=== PATIENT | male | born 1950 | race Two or more races ===

== ENCOUNTER 2022-02-10 12:50 | Emergency (ER) | payer OTHER ==
[~2022-02-10] VITALS: Ht 162.6 cm; Wt 77.1 kg
[2022-02-10 14:03] VITALS: BP 143/76
[2022-02-10] MEDS ORDERED: HYDR-4072 PO (14:37)
[2022-02-10] MEDS ORDERED: HYDROcodone-ACET 10/325MG TAB PO ONE (14:45)
== END 2022-02-10 15:07 | disposition home or self-care (01) ==
LOC: ER 12:50
DX: G89.29 Other chronic pain (principal); M54.50 Low back pain, unspecified; M54.2 Cervicalgia; E78.5 Hyperlipidemia, unspecified; I10 Essential (primary) hypertension; Z76.0 Encounter for issue of repeat prescription

== ENCOUNTER 2022-07-18 10:00 | Inpatient (IN) | payer OTHER, MEDICAID ==
[~2022-07-18] VITALS: Ht 165.1 cm; Wt 94.1 kg
[~2022-07-18 10:00] MED LIST: HYDR-4072 PO
[2022-07-18 11:03] LABS: Eosinophils # (auto) 0 10 ^3/uL (0-0.8); Hemoglobin 9.5 g/dL (13.5-17.5); Lymphocytes # (auto) 0.9 10 ^3/uL (0.4-5.4); Red Cell Distribution Width 13.6 % (11.8-14.3)
[2022-07-18 11:06] LABS: Basophils # (auto) 0.1 10 ^3/uL (0-0.2); Basophils % (auto) 0.6 % (0.0-2.0); Eosinophils % (auto) 0.3 % (0.0-7.0); Hematocrit 27.7 % (41.0-53.0); Lymphocytes % (auto) 9.1 % (10.0-50.0); Mean Corpuscular Hemoglobin 37.2 pg (28.0-32.0); Mean Corpuscular Hgb Conc. 34.4 g/dL (32.0-36.0); Mean Corpuscular Volume 108.4 fL (80.0-100.0); Monocytes # (auto) 0.8 10 ^3/uL (0-1.3); Monocytes % (auto) 8.1 % (0.0-12.0); Neutrophils # (auto) 8.3 10 ^3/uL (1.6-8.6); Neutrophils % (auto) 81.9 % (37.0-80.0); Red Blood Cells 2.55 10^6/uL (4.5-5.90); White Blood Cell 10.2 10^3/uL (4.4-10.8)
[2022-07-18 11:15] LABS: Albumin 3.7 g/dL (3.4-5.0); Calcium 8.1 mg/dL (8.5-10.1); Potassium 4.8 mmol/L (3.5-5.1)
[2022-07-18 11:17] LABS: BUN/Creatinine Ratio 21.8
[2022-07-18 11:19] LABS: Bilirubin, Total 0.7 mg/dL (0.2-1.0); Total Protein 6.7 g/dL (6.4-8.2)
[2022-07-18 13:10] LABS: Urine WBC None Seen /hpf (0 - 3)
[2022-07-18 14:04] LABS: Urine Bacteria NONE SEEN /hpf (None Seen); Urine Blood 1+ /uL (Negative); Urine Specific Gravity 1.007 (1.001-1.035)
[2022-07-18] MEDS ORDERED: FUROSEMIDE 20 MG/2 ML VIAL IV ONE ×2 (15:15→15:45)
[2022-07-18] MEDS ORDERED: ONDANSETRON HCL 4 MG/2 ML VIAL IV PRN (15:15)
[2022-07-18] MEDS ORDERED: NITROGLYCERIN 0.4 MG SL TAB SL PRN (15:15)
[2022-07-18] MEDS ORDERED: MORPHINE SULFATE INJ 2 MG/ml SYRG IV PRN ×2 (15:15)
[2022-07-18] MEDS ORDERED: PANTOPRAZOLE 40 MG/10 ML VIAL INJ IV ONE (15:15)
[2022-07-18] MEDS: HYDROcodone-ACET 5/325MG TAB PO PRN ×2 (15:49→21:32)
[2022-07-18 16:49] VITALS: BP 129/68
[2022-07-18 18:07] VITALS: BP 129/68
[2022-07-18 18:18] VITALS: BP 129/68
[2022-07-18] MEDS ORDERED: SIMV-8 PO (19:24)
[2022-07-18] MEDS ORDERED: FLUO-126 PO (19:24)
[2022-07-18] MEDS ORDERED: LISI20TA28 PO (19:24)
[2022-07-18] MEDS ORDERED: HYDR-4798 PO (19:24)
[2022-07-18] MEDS ORDERED: FLUO-125 PO (19:24)
[2022-07-18] MEDS ORDERED: GABA-339 PO (19:24)
[2022-07-18 21:06] LABS: Protein, Urine 6.7 mg/dL (0.0-11.9)
[2022-07-18 22:00] VITALS: BP 103/61
[2022-07-19] VITALS (7 sets, daily range): BP systolic 85–104; BP diastolic 41–63
[2022-07-19] MEDS: HYDROcodone-ACET 5/325MG TAB PO PRN ×4 (04:58→23:27)
[2022-07-19] MEDS ORDERED: FUROSEMIDE 20 MG/2 ML VIAL IV SCH (06:00)
[2022-07-19 06:29] LABS: BUN/Creatinine Ratio 22.3; Calcium 8.7 mg/dL (8.5-10.1); Potassium 5.3 mmol/L (3.5-5.1)
[2022-07-19] MEDS: PANTOPRAZOLE 40 MG/10 ML VIAL INJ IV SCH (09:25)
[2022-07-19] MEDS ORDERED: DOCUSATE SOD 100 MG CAP PO ONE (09:45)
[2022-07-19] MEDS ORDERED: LACTULOSE 20Gm/30ML SOLN PO SCH (10:00)
[2022-07-19] MEDS ORDERED: FLUoxetine HCL 20 MG CAP PO ONE (10:15)
[2022-07-19] MEDS ORDERED: FUROSEMIDE 20 MG/2 ML VIAL IV ONE (10:15)
[2022-07-19] MEDS: ERGOCALCIFEROL 50,000 UNIT(1.25MG) CAP PO SCH (11:34)
[2022-07-19] MEDS ORDERED: DEXTROSE (50%) 50ML SYRG IV ONE (12:15)
[2022-07-19] MEDS ORDERED: InsuLIN REG 1unit/0.01ml Soln (100units/ml) IV ONE (12:15)
[2022-07-19] MEDS ORDERED: ALBUTEROL SULF 2.5 MG/0.5ML(0.5%) NEB SOLN NEB ONE (12:15)
[2022-07-19] MEDS ORDERED: CALCIUM GLUC 1,000mg/50ml-NS 50 ML IV ONE (12:15)
[2022-07-19] MEDS ORDERED: DOPamine 1600MCG/ML D5W 250 ML IV SCH (12:30)
[2022-07-19] MEDS: ALBUMIN 25% 50 ML IV SCH ×2 (13:47→22:05)
[2022-07-19] MEDS: SODIUM ZIRCONIUM CYCL 10 GM PAK PO SCH ×2 (14:21→22:05)
[2022-07-19] MEDS ORDERED: CYANOCOBALAMIN (B-12) 1000 MCG/1 ML VIAL IM ONE (14:30)
[2022-07-19] MEDS ORDERED: FOLIC ACID 1 MG in D5W 5% 50 ML INJ ONE (14:30)
[2022-07-19] MEDS ORDERED: LORazepam 0.5 MG TAB PO ONE (14:45)
[2022-07-19] MEDS: TAMSULOSIN HYDROCHLORIDE 0.4 MG CAP PO SCH (17:38)
[2022-07-19] MEDS: FUROSEMIDE 40 MG/4 ML VIAL IV SCH (17:40)
[2022-07-20] MEDS: ALBUMIN 25% 50 ML IV SCH (04:26)
[2022-07-20 05:00] VITALS: BP 87/46
[2022-07-20 05:21] LABS: Eosinophils # (auto) 0.1 10 ^3/uL (0-0.8); Eosinophils % (auto) 0.9 % (0.0-7.0); Hemoglobin 8.8 g/dL (13.5-17.5); Lymphocytes # (auto) 1.3 10 ^3/uL (0.4-5.4); Mean Corpuscular Hemoglobin 37.6 pg (28.0-32.0); Neutrophils # (auto) 4.8 10 ^3/uL (1.6-8.6); Nucleated Red Blood Cells % 0.1 %
[2022-07-20 05:24] LABS: Basophils # (auto) 0 10 ^3/uL (0-0.2); Basophils % (auto) 0.7 % (0.0-2.0); Hematocrit 25.8 % (41.0-53.0); Lymphocytes % (auto) 18.5 % (10.0-50.0); Mean Corpuscular Hgb Conc. 34.1 g/dL (32.0-36.0); Mean Corpuscular Volume 110.1 fL (80.0-100.0); Monocytes # (auto) 0.7 10 ^3/uL (0-1.3); Monocytes % (auto) 10.6 % (0.0-12.0); Neutrophils % (auto) 69.3 % (37.0-80.0); Red Blood Cells 2.34 10^6/uL (4.5-5.90); White Blood Cell 6.9 10^3/uL (4.4-10.8)
[2022-07-20] MEDS: FUROSEMIDE 40 MG/4 ML VIAL IV SCH (05:35)
[2022-07-20] MEDS: SODIUM ZIRCONIUM CYCL 10 GM PAK PO SCH (05:36)
[2022-07-20] MEDS: HYDROcodone-ACET 5/325MG TAB PO PRN ×3 (05:37→18:18)
[2022-07-20 05:41] LABS: BUN/Creatinine Ratio 21.8; Calcium 8.5 mg/dL (8.5-10.1); Potassium 4.2 mmol/L (3.5-5.1)
[2022-07-20 09:00] VITALS: BP 108/52
[2022-07-20] MEDS ORDERED: FUROSEMIDE 40 MG/4 ML VIAL IV SCH (10:00)
[2022-07-20] MEDS: PANTOPRAZOLE 40 MG/10 ML VIAL INJ IV SCH (10:18)
[2022-07-20] MEDS: FLUoxetine HCL 20 MG CAP PO SCH (10:18)
[2022-07-20] MEDS: FOLIC ACID 1 MG in D5W 5% 50 ML INJ SCH (10:34)
[2022-07-20] MEDS: CYANOCOBALAMIN (B-12) 1000 MCG/1 ML VIAL IM SCH (10:35)
[2022-07-20] MEDS: POLYETHYLENE GLYCOL 17 GM PWDR PO SCH (11:54)
[2022-07-20 13:00] VITALS: BP 99/42
[2022-07-20] MEDS ORDERED: SODIUM CHLORIDE 0.9% 1,000 ML IV ONE (13:15)
[2022-07-20] MEDS: MIDODRINE HCL 10 MG TAB PO SCH (13:55)
[2022-07-20 17:00] VITALS: BP 107/60
[2022-07-20] MEDS: TAMSULOSIN HYDROCHLORIDE 0.4 MG CAP PO SCH (17:33)
[2022-07-20 22:00] VITALS: BP 94/47
[2022-07-21] MEDS: HYDROcodone-ACET 5/325MG TAB PO PRN ×4 (00:39→18:40)
[2022-07-21 05:00] VITALS: BP 103/55
[2022-07-21 07:54] LABS: BUN/Creatinine Ratio 20.3; Calcium 8.8 mg/dL (8.5-10.1); Potassium 4.2 mmol/L (3.5-5.1)
[2022-07-21 09:00] VITALS: BP 96/57
[2022-07-21] MEDS: CYANOCOBALAMIN (B-12) 1000 MCG/1 ML VIAL IM SCH (10:30)
[2022-07-21] MEDS: MIDODRINE HCL 10 MG TAB PO SCH (11:00)
[2022-07-21] MEDS: FLUoxetine HCL 20 MG CAP PO SCH (11:00)
[2022-07-21] MEDS: POLYETHYLENE GLYCOL 17 GM PWDR PO SCH (11:01)
[2022-07-21] MEDS: FOLIC ACID 1 MG in D5W 5% 50 ML INJ SCH (12:44)
[2022-07-21 13:00] VITALS: BP 104/60
[2022-07-21] MEDS ORDERED: SODIUM CHLORIDE 0.9% 500 ML IV ONE (14:45)
[2022-07-21 14:55] LABS: Hepatitis A Ab IgM Negative; Hepatitis B Core IgM Negative
[2022-07-21 14:56] LABS: Hepatitis C Antibody Negative (Negative)
[2022-07-21 17:00] VITALS: BP 118/73
[2022-07-21] MEDS: TAMSULOSIN HYDROCHLORIDE 0.4 MG CAP PO SCH (18:13)
[2022-07-21 22:00] VITALS: BP 97/48
[2022-07-22 05:00] VITALS: BP 103/55
[2022-07-22 06:06] LABS: RPR Non Reactive (Non Reactive)
[2022-07-22 06:22] LABS: BUN/Creatinine Ratio 19.7; Basophils # (auto) 0.1 10 ^3/uL (0-0.2); Calcium 8.7 mg/dL (8.5-10.1); Eosinophils # (auto) 0.1 10 ^3/uL (0-0.8); Hemoglobin 8.6 g/dL (13.5-17.5); Lymphocytes # (auto) 1.4 10 ^3/uL (0.4-5.4); Monocytes # (auto) 0.6 10 ^3/uL (0-1.3); Neutrophils # (auto) 3.9 10 ^3/uL (1.6-8.6); Potassium 4.1 mmol/L (3.5-5.1)
[2022-07-22 06:27] LABS: Basophils % (auto) 1.1 % (0.0-2.0); Eosinophils % (auto) 1.7 % (0.0-7.0); Hematocrit 24.9 % (41.0-53.0); Lymphocytes % (auto) 22.5 % (10.0-50.0); Mean Corpuscular Hemoglobin 37.5 pg (28.0-32.0); Mean Corpuscular Hgb Conc. 34.6 g/dL (32.0-36.0); Mean Corpuscular Volume 108.2 fL (80.0-100.0); Monocytes % (auto) 9.6 % (0.0-12.0); Neutrophils % (auto) 65.1 % (37.0-80.0); Red Cell Distribution Width 13.4 % (11.8-14.3)
[2022-07-22 07:06] LABS: Immunoglobulin G, Serum 657 mg/dL (603-1613)
[2022-07-22] MEDS: HYDROcodone-ACET 5/325MG TAB PO PRN ×3 (07:57→20:44)
[2022-07-22 09:00] VITALS: BP 111/65
[2022-07-22] MEDS: SODIUM CHLORIDE 0.9% 1,000 ML IV SCH ×3 (10:27→19:47)
[2022-07-22] MEDS: CYANOCOBALAMIN (B-12) 1000 MCG/1 ML VIAL IM SCH (10:28)
[2022-07-22] MEDS: POLYETHYLENE GLYCOL 17 GM PWDR PO SCH (10:29)
[2022-07-22] MEDS: FLUoxetine HCL 20 MG CAP PO SCH (10:29)
[2022-07-22] MEDS: FOLIC ACID 1 MG in D5W 5% 50 ML INJ SCH (10:29)
[2022-07-22] MEDS: PANTOPRAZOLE 40 MG TAB PO SCH (10:29)
[2022-07-22] MEDS: MIDODRINE HCL 10 MG TAB PO SCH ×2 (12:00→17:43)
[2022-07-22 13:00] VITALS: BP 110/67
[2022-07-22 16:54] VITALS: BP 113/62
[2022-07-22 16:57] LABS: INR 1.03 (0.9-1.15); Partial Thromboplastin Time 25.9 sec (24.6-33.4)
[2022-07-22] MEDS: Nepro With Carbsteady ButterPecan 8oz Carton PO SCH (17:43)
[2022-07-22] MEDS: TAMSULOSIN HYDROCHLORIDE 0.4 MG CAP PO SCH (17:43)
[2022-07-22] MEDS ORDERED: ERGOCALCIFEROL 50,000 UNIT(1.25MG) CAP PO SCH (17:45)
[2022-07-22] MEDS ORDERED: Ensure HIGH Protein Chocolate 8oz Bottle PO SCH (18:00)
[2022-07-22 23:42] VITALS: BP 103/47
[2022-07-23] MEDS: HYDROcodone-ACET 5/325MG TAB PO PRN ×4 (02:23→21:01)
[2022-07-23 05:10] LABS: Basophils # (auto) 0.1 10 ^3/uL (0-0.2); Eosinophils # (auto) 0.1 10 ^3/uL (0-0.8); Eosinophils % (auto) 1.6 % (0.0-7.0); Mean Corpuscular Volume 108.6 fL (80.0-100.0); Neutrophils # (auto) 3.8 10 ^3/uL (1.6-8.6)
[2022-07-23 05:14] LABS: Basophils % (auto) 1.2 % (0.0-2.0); Hematocrit 22.5 % (41.0-53.0); Hemoglobin 7.7 g/dL (13.5-17.5); Lymphocytes # (auto) 1.3 10 ^3/uL (0.4-5.4); Lymphocytes % (auto) 21.6 % (10.0-50.0); Mean Corpuscular Hemoglobin 37.5 pg (28.0-32.0); Mean Corpuscular Hgb Conc. 34.5 g/dL (32.0-36.0); Monocytes # (auto) 0.7 10 ^3/uL (0-1.3); Monocytes % (auto) 11.6 % (0.0-12.0); Nucleated Red Blood Cells % 0.3 %; Red Blood Cells 2.07 10^6/uL (4.5-5.90); Red Cell Distribution Width 13.8 % (11.8-14.3)
[2022-07-23] MEDS: MIDODRINE HCL 10 MG TAB PO SCH ×3 (05:34→17:21)
[2022-07-23 05:35] LABS: Potassium 4.4 mmol/L (3.5-5.1)
[2022-07-23 05:42] LABS: Albumin 3.5 g/dL (3.4-5.0); BUN/Creatinine Ratio 19.3; Bilirubin, Total 0.4 mg/dL (0.2-1.0); Calcium 8.2 mg/dL (8.5-10.1); Magnesium 1.9 mg/dL (1.6-2.6); Phosphorus 3.2 mg/dL (2.5-4.90); Total Protein 5.9 g/dL (6.4-8.2)
[2022-07-23 05:49] VITALS: BP 109/60
[2022-07-23 09:08] VITALS: BP 119/53
[2022-07-23] MEDS: CYANOCOBALAMIN (B-12) 1000 MCG/1 ML VIAL IM SCH (09:56)
[2022-07-23] MEDS: FOLIC ACID 1 MG in D5W 5% 50 ML INJ SCH (09:57)
[2022-07-23] MEDS: PANTOPRAZOLE 40 MG TAB PO SCH (09:57)
[2022-07-23] MEDS: POLYETHYLENE GLYCOL 17 GM PWDR PO SCH (09:57)
[2022-07-23] MEDS: FLUoxetine HCL 20 MG CAP PO SCH (10:12)
[2022-07-23] MEDS: Nepro With Carbsteady ButterPecan 8oz Carton PO SCH ×3 (10:14→17:12)
[2022-07-23 12:30] VITALS: BP 105/56
[2022-07-23] MEDS ORDERED: FURO1TAB31 PO (14:04)
[2022-07-23] MEDS ORDERED: TAM04C PO (14:04)
[2022-07-23 16:34] VITALS: BP 122/67
[2022-07-23 17:21] VITALS: BP 119/78
[2022-07-23] MEDS: TAMSULOSIN HYDROCHLORIDE 0.4 MG CAP PO SCH (17:21)
[2022-07-23 22:00] VITALS: BP 113/53
[2022-07-24] MEDS: HYDROcodone-ACET 5/325MG TAB PO PRN ×4 (02:59→21:09)
[2022-07-24 05:00] VITALS: BP 82/43
[2022-07-24 06:03] VITALS: BP 93/47
[2022-07-24] MEDS: MIDODRINE HCL 10 MG TAB PO SCH ×3 (06:08→18:44)
[2022-07-24] MEDS: Nepro With Carbsteady ButterPecan 8oz Carton PO SCH ×3 (08:16→18:19)
[2022-07-24 09:00] VITALS: BP_SYST 139; BP_SYST 98; BP_DIAS 56; BP_DIAS 87
[2022-07-24] MEDS: CYANOCOBALAMIN (B-12) 1000 MCG/1 ML VIAL IM SCH (10:06)
[2022-07-24] MEDS: FOLIC ACID 1 MG in D5W 5% 50 ML INJ SCH (10:06)
[2022-07-24] MEDS: PANTOPRAZOLE 40 MG TAB PO SCH (10:07)
[2022-07-24] MEDS: FLUoxetine HCL 20 MG CAP PO SCH (10:07)
[2022-07-24] MEDS: POLYETHYLENE GLYCOL 17 GM PWDR PO SCH (10:07)
[2022-07-24] MEDS ORDERED: FUROSEMIDE 100 MG/10ML VIAL IV ONE (12:30)
[2022-07-24 13:00] VITALS: BP 98/44
[2022-07-24 13:46] LABS: Calcium 8.8 mg/dL (8.5-10.1); Potassium 4.3 mmol/L (3.5-5.1)
[2022-07-24 13:48] LABS: BUN/Creatinine Ratio 17.9
[2022-07-24] MEDS: GABAPENTIN 300 MG CAP PO SCH ×2 (15:54→21:08)
[2022-07-24 16:39] VITALS: BP 94/51
[2022-07-24] MEDS: TAMSULOSIN HYDROCHLORIDE 0.4 MG CAP PO SCH (18:44)
[2022-07-24 22:00] VITALS: BP 93/46
[2022-07-24] MEDS ORDERED: SODIUM CHLORIDE 0.9% 500 ML IV ONE (22:00)
[2022-07-25] MEDS ORDERED: SODIUM CHLORIDE 0.9% 500 ML IV ONE (00:30)
[2022-07-25] MEDS: traMADol HCL 50 MG TAB PO PRN (03:10)
[2022-07-25 05:00] VITALS: BP 102/51
[2022-07-25] MEDS: HYDROcodone-ACET 5/325MG TAB PO PRN ×4 (05:04→20:47)
[2022-07-25 05:29] LABS: Basophils # (auto) 0 10 ^3/uL (0-0.2); Eosinophils # (auto) 0 10 ^3/uL (0-0.8); Hemoglobin 8.1 g/dL (13.5-17.5); Monocytes # (auto) 0.7 10 ^3/uL (0-1.3); Neutrophils # (auto) 10.9 10 ^3/uL (1.6-8.6); Red Blood Cells 2.16 10^6/uL (4.5-5.90)
[2022-07-25 05:31] LABS: Basophils % (auto) 0.2 % (0.0-2.0); Lymphocytes # (auto) 0.4 10 ^3/uL (0.4-5.4); Lymphocytes % (auto) 3.6 % (10.0-50.0); Mean Corpuscular Hemoglobin 37.5 pg (28.0-32.0); Mean Corpuscular Hgb Conc. 33.8 g/dL (32.0-36.0); Mean Corpuscular Volume 111.2 fL (80.0-100.0); Monocytes % (auto) 5.6 % (0.0-12.0); Neutrophils % (auto) 90.6 % (37.0-80.0)
[2022-07-25 05:37] LABS: Potassium 4.1 mmol/L (3.5-5.1)
[2022-07-25 05:43] LABS: Albumin 3.1 g/dL (3.4-5.0); BUN/Creatinine Ratio 17.1; Bilirubin, Total 0.6 mg/dL (0.2-1.0); Magnesium 1.6 mg/dL (1.6-2.6); Total Protein 5.8 g/dL (6.4-8.2)
[2022-07-25 05:44] LABS: Urine Bacteria NONE SEEN /hpf (None Seen); Urine Blood 2+ /uL (Negative); Urine Specific Gravity 1.012 (1.001-1.035); Urine WBC 132 /hpf (0 - 3); Urine WBC Clumps PRESENT /hpf (None Seen)
[2022-07-25] MEDS: MIDODRINE HCL 10 MG TAB PO SCH ×3 (06:22→17:52)
[2022-07-25] MEDS: GABAPENTIN 300 MG CAP PO SCH ×3 (06:22→21:14)
[2022-07-25] MEDS: Nepro With Carbsteady ButterPecan 8oz Carton PO SCH ×3 (08:25→17:41)
[2022-07-25 08:30] VITALS: BP 125/55
[2022-07-25] MEDS: CYANOCOBALAMIN (B-12) 1000 MCG/1 ML VIAL IM SCH (09:32)
[2022-07-25] MEDS: PANTOPRAZOLE 40 MG TAB PO SCH (09:32)
[2022-07-25] MEDS: FOLIC ACID 1 MG in D5W 5% 50 ML INJ SCH (09:32)
[2022-07-25] MEDS: POLYETHYLENE GLYCOL 17 GM PWDR PO SCH (09:32)
[2022-07-25] MEDS: FLUoxetine HCL 20 MG CAP PO SCH (09:32)
[2022-07-25] MEDS ORDERED: FINASTERIDE 5 MG TAB PO ONE (10:00)
[2022-07-25] MEDS ORDERED: cefTRIAXone 1GM/50ML D5W 50 ML IV ONE (10:00)
[2022-07-25] MEDS: CYANOCOBALAMIN 500 MCG TAB PO SCH (10:36)
[2022-07-25] MEDS: FOLIC ACID 1 MG TAB PO SCH (10:36)
[2022-07-25] MEDS: SODIUM CHLORIDE 0.9% 1,000 ML IV SCH ×2 (10:36→20:44)
[2022-07-25 12:30] VITALS: BP 102/57
[2022-07-25 16:30] VITALS: BP 102/61
[2022-07-25] MEDS: TAMSULOSIN HYDROCHLORIDE 0.4 MG CAP PO SCH (17:52)
[2022-07-25 22:00] VITALS: BP 118/60
[2022-07-26] MEDS: HYDROcodone-ACET 5/325MG TAB PO PRN ×2 (04:45→12:44)
[2022-07-26 05:00] VITALS: BP 106/59
[2022-07-26] MEDS: MIDODRINE HCL 10 MG TAB PO SCH ×3 (05:13→18:34)
[2022-07-26] MEDS: GABAPENTIN 300 MG CAP PO SCH ×3 (05:13→21:25)
[2022-07-26 06:17] LABS: Basophils # (auto) 0 10 ^3/uL (0-0.2); Basophils % (auto) 0.1 % (0.0-2.0); Eosinophils # (auto) 0 10 ^3/uL (0-0.8); Lymphocytes # (auto) 0.5 10 ^3/uL (0.4-5.4); Monocytes # (auto) 0.7 10 ^3/uL (0-1.3); Neutrophils # (auto) 13.1 10 ^3/uL (1.6-8.6); Red Cell Distribution Width 13.7 % (11.8-14.3); White Blood Cell 14.3 10^3/uL (4.4-10.8)
[2022-07-26 06:20] LABS: Eosinophils % (auto) 0.1 % (0.0-7.0); Lymphocytes % (auto) 3.5 % (10.0-50.0); Mean Corpuscular Hemoglobin 37.4 pg (28.0-32.0); Mean Corpuscular Hgb Conc. 34.7 g/dL (32.0-36.0); Mean Corpuscular Volume 107.9 fL (80.0-100.0); Monocytes % (auto) 4.8 % (0.0-12.0); Neutrophils % (auto) 91.5 % (37.0-80.0); Red Blood Cells 2.13 10^6/uL (4.5-5.90)
[2022-07-26 06:32] LABS: BUN/Creatinine Ratio 20.1; Calcium 8.1 mg/dL (8.5-10.1); Potassium 3.7 mmol/L (3.5-5.1)
[2022-07-26] MEDS: Nepro With Carbsteady ButterPecan 8oz Carton PO SCH ×3 (08:00→18:00)
[2022-07-26] MEDS: cefTRIAXone 1GM/50ML D5W 50 ML IV SCH (08:17)
[2022-07-26 09:00] VITALS: BP 103/43
[2022-07-26] MEDS: FOLIC ACID 1 MG TAB PO SCH (09:44)
[2022-07-26] MEDS: POLYETHYLENE GLYCOL 17 GM PWDR PO SCH (09:45)
[2022-07-26] MEDS: CYANOCOBALAMIN 500 MCG TAB PO SCH (09:45)
[2022-07-26] MEDS: ERGOCALCIFEROL 50,000 UNIT(1.25MG) CAP PO SCH (09:45)
[2022-07-26] MEDS: PANTOPRAZOLE 40 MG TAB PO SCH (09:45)
[2022-07-26] MEDS: FLUoxetine HCL 20 MG CAP PO SCH (09:45)
[2022-07-26 13:00] VITALS: BP 105/48
[2022-07-26 17:20] VITALS: BP 95/50
[2022-07-26] MEDS: TAMSULOSIN HYDROCHLORIDE 0.4 MG CAP PO SCH (18:34)
[2022-07-26] MEDS: SODIUM CHLORIDE 0.9% 1,000 ML IV SCH (20:49)
[2022-07-26 22:00] VITALS: BP 103/56
[2022-07-27] MEDS: HYDROcodone-ACET 5/325MG TAB PO PRN ×4 (00:22→20:33)
[2022-07-27 05:00] VITALS: BP 97/55
[2022-07-27 05:22] LABS: Basophils # (auto) 0 10 ^3/uL (0-0.2); Basophils % (auto) 0.4 % (0.0-2.0); Eosinophils # (auto) 0 10 ^3/uL (0-0.8); Eosinophils % (auto) 0.2 % (0.0-7.0); Hematocrit 23.1 % (41.0-53.0); Lymphocytes # (auto) 0.5 10 ^3/uL (0.4-5.4); Mean Corpuscular Hemoglobin 38.5 pg (28.0-32.0); Mean Corpuscular Hgb Conc. 34.7 g/dL (32.0-36.0); Monocytes # (auto) 0.4 10 ^3/uL (0-1.3); Monocytes % (auto) 4.2 % (0.0-12.0); Neutrophils # (auto) 8.2 10 ^3/uL (1.6-8.6); Neutrophils % (auto) 90.2 % (37.0-80.0); Red Blood Cells 2.08 10^6/uL (4.5-5.90); Red Cell Distribution Width 13.9 % (11.8-14.3); White Blood Cell 9.1 10^3/uL (4.4-10.8)
[2022-07-27] MEDS: MIDODRINE HCL 10 MG TAB PO SCH ×3 (05:31→18:02)
[2022-07-27] MEDS: GABAPENTIN 300 MG CAP PO SCH ×3 (05:31→21:45)
[2022-07-27] MEDS: traMADol HCL 50 MG TAB PO PRN (05:32)
[2022-07-27 05:38] LABS: BUN/Creatinine Ratio 21.7; Calcium 8.1 mg/dL (8.5-10.1); Potassium 3.8 mmol/L (3.5-5.1)
[2022-07-27] MEDS: Nepro With Carbsteady ButterPecan 8oz Carton PO SCH ×3 (07:59→18:03)
[2022-07-27 09:00] VITALS: BP 107/61
[2022-07-27] MEDS: cefTRIAXone 1GM/50ML D5W 50 ML IV SCH (09:07)
[2022-07-27] MEDS: CYANOCOBALAMIN 500 MCG TAB PO SCH (09:08)
[2022-07-27] MEDS: PANTOPRAZOLE 40 MG TAB PO SCH (09:08)
[2022-07-27] MEDS: POLYETHYLENE GLYCOL 17 GM PWDR PO SCH (09:08)
[2022-07-27] MEDS: FOLIC ACID 1 MG TAB PO SCH (09:08)
[2022-07-27] MEDS: FLUoxetine HCL 20 MG CAP PO SCH (09:08)
[2022-07-27 10:56] LABS: Folate (Folic Acid) 8.54 ng/mL (5.38-24)
[2022-07-27] MEDS: SODIUM CHLORIDE 0.9% 1,000 ML IV SCH (12:25)
[2022-07-27 13:00] VITALS: BP 98/46
[2022-07-27 17:01] VITALS: BP 93/54
[2022-07-27] MEDS: TAMSULOSIN HYDROCHLORIDE 0.4 MG CAP PO SCH (18:02)
[2022-07-27 20:00] VITALS: BP 108/57
[2022-07-27 22:00] VITALS: BP 108/57
[2022-07-28] VITALS (7 sets, daily range): BP systolic 86–101; BP diastolic 50–58
[2022-07-28] MEDS: HYDROcodone-ACET 5/325MG TAB PO PRN ×4 (02:47→21:46)
[2022-07-28] MEDS: SODIUM CHLORIDE 0.9% 1,000 ML IV SCH ×2 (04:40→22:52)
[2022-07-28 05:28] LABS: BUN/Creatinine Ratio 22.1; Calcium 8.1 mg/dL (8.5-10.1); Phosphorus 3.3 mg/dL (2.5-4.90); Potassium 3.7 mmol/L (3.5-5.1)
[2022-07-28] MEDS: MIDODRINE HCL 10 MG TAB PO SCH ×3 (06:39→18:04)
[2022-07-28] MEDS: Nepro With Carbsteady ButterPecan 8oz Carton PO SCH ×3 (08:00→18:04)
[2022-07-28] MEDS: levoFLOXacin 250 MG TAB PO SCH (10:00)
[2022-07-28] MEDS: CYANOCOBALAMIN 500 MCG TAB PO SCH (10:00)
[2022-07-28] MEDS: FLUoxetine HCL 20 MG CAP PO SCH (10:00)
[2022-07-28] MEDS: PANTOPRAZOLE 40 MG TAB PO SCH (10:00)
[2022-07-28] MEDS: POLYETHYLENE GLYCOL 17 GM PWDR PO SCH (10:00)
[2022-07-28] MEDS: FOLIC ACID 1 MG TAB PO SCH (10:00)
[2022-07-28] MEDS: GABAPENTIN 300 MG CAP PO SCH ×2 (10:00→22:44)
[2022-07-28] MEDS: TAMSULOSIN HYDROCHLORIDE 0.4 MG CAP PO SCH (18:04)
[2022-07-29] MEDS: HYDROcodone-ACET 5/325MG TAB PO PRN ×2 (03:49→09:04)
[2022-07-29] MEDS: MIDODRINE HCL 10 MG TAB PO SCH ×2 (06:00→12:00)
[2022-07-29 06:39] LABS: BUN/Creatinine Ratio 22.8; Calcium 8.1 mg/dL (8.5-10.1); Potassium 3.6 mmol/L (3.5-5.1)
[2022-07-29 09:00] VITALS: BP 99/50
[2022-07-29] MEDS: GABAPENTIN 300 MG CAP PO SCH (09:04)
[2022-07-29] MEDS: CYANOCOBALAMIN 500 MCG TAB PO SCH (09:05)
[2022-07-29] MEDS: levoFLOXacin 250 MG TAB PO SCH (09:06)
[2022-07-29] MEDS: FLUoxetine HCL 20 MG CAP PO SCH (09:06)
[2022-07-29] MEDS: PANTOPRAZOLE 40 MG TAB PO SCH (09:06)
[2022-07-29] MEDS: FOLIC ACID 1 MG TAB PO SCH (09:06)
[2022-07-29] MEDS: POLYETHYLENE GLYCOL 17 GM PWDR PO SCH (09:06)
[2022-07-29] MEDS: Nepro With Carbsteady ButterPecan 8oz Carton PO SCH ×2 (09:08→12:00)
[2022-07-29] MEDS ORDERED: GABA300C10 PO (10:02)
[2022-07-29] MEDS ORDERED: LEVO250T69 PO (10:02)
[2022-07-29] MEDS ORDERED: ERGO1CAP23 PO (10:02)
[2022-07-29] MEDS ORDERED: FOLI1TAB6 PO (10:02)
[2022-07-29] MEDS ORDERED: FLUO20CA90 PO (10:02)
[2022-07-29] MEDS ORDERED: CYAN500T3 PO (10:02)
[2022-07-29] MEDS ORDERED: PANT40T PO (10:02)
[2022-07-29] MEDS ORDERED: MID10T PO (10:07)
[2022-07-29 11:18] VITALS: BP 87/46
== END 2022-07-29 17:52 | disposition home or self-care (01) | DRG 871 ==
LOC: ER 10:00 → TELE 15:20 → TELE-CENTR 16:43 → CENTRAL 07-23 21:52
PROVIDERS: ADMIT Internal Medicine; ATTEND Internal Medicine
DX: A41.51 Sepsis due to Escherichia coli [E. coli] (principal); N17.0 Acute kidney failure with tubular necrosis; E87.1 Hypo-osmolality and hyponatremia; N39.0 Urinary tract infection, site not specified; N18.4 Chronic kidney disease, stage 4 (severe); E44.1 Mild protein-calorie malnutrition; E87.5 Hyperkalemia; K21.9 Gastro-esophageal reflux disease without esophagitis; K59.00 Constipation, unspecified; Z20.822 Contact with and (suspected) exposure to COVID-19; N40.0 Benign prostatic hyperplasia without lower urinary tract symptoms; D63.1 Anemia in chronic kidney disease; E53.8 Deficiency of other specified B group vitamins; E55.9 Vitamin D deficiency, unspecified; E66.9 Obesity, unspecified; I12.9 Hypertensive chronic kidney disease with stage 1 through stage 4 chronic kidney disease, or unspecified chronic kidney disease; E78.5 Hyperlipidemia, unspecified; E86.0 Dehydration; F32.A Depression, unspecified; G89.29 Other chronic pain; Z88.8 Allergy status to other drugs, medicaments and biological substances; Z68.31 Body mass index [BMI] 31.0-31.9, adult; Z79.899 Other long term (current) drug therapy
CPT/HCPCS: 36415; 71045; 71046; 74176; 74181; 76775; 80048; 80053; 80074; 81001; 82088; 82105; 82306; 82378; 82533; 82570; 82607; 82746; 82784; 82962; 83036; 83516; 83520; 83540; 83550; 83615; 83735; 83880; 83935; 84100; 84154; 84156; 84244; 84300; 84425; 84439; 84443; 84484; 85025; 85045; 85610; 85652; 85730; 86038; 86141; 86160; 86225; 86235; 86256; 86301; 86334; 86335; 86592; 87040; 87086; 87088; 87186; 87804; 93306; 93970; 96374; 96375; C9113; G0378; J0696; J1815; J2405; J7060

== ENCOUNTER 2022-08-10 11:04 | Inpatient (IN) | payer OTHER, MEDICAID ==
[~2022-08-10] VITALS: Ht 162.6 cm; Wt 85.0 kg
[~2022-08-10 11:04] MED LIST changes: +CYAN500T3 PO; +ERGO1CAP23 PO; +FLUO20CA90 PO; +FOLI1TAB6 PO; +FURO1TAB31 PO; +GABA300C10 PO; -HYDR-4072 PO; +HYDR-4798 PO; +LEVO250T69 PO; +MID10T PO; +PANT40T PO; +SIMV-8 PO; +TAM04C PO
[2022-08-10 13:00] VITALS: BP 142/70
[2022-08-10] MEDS: HYDROcodone-ACET 5/325MG TAB PO PRN ×2 (13:00→20:31)
[2022-08-10] MEDS ORDERED: FUROSEMIDE 20 MG/2 ML VIAL IV ONE (15:15)
[2022-08-10] MEDS ORDERED: FOLIC ACID 1 MG TAB PO ONE (15:15)
[2022-08-10] MEDS ORDERED: CYANOCOBALAMIN 500 MCG TAB PO ONE (15:15)
[2022-08-10] MEDS ORDERED: ONDANSETRON HCL 4 MG/2 ML VIAL IV PRN (15:15)
[2022-08-10] MEDS ORDERED: ceFAZolin 1GM/50ML 50 ML IV ONE (15:15)
[2022-08-10 16:46] LABS: Basophils # (auto) 0.1 10 ^3/uL (0-0.2); Basophils % (auto) 1.4 % (0.0-2.0); Eosinophils # (auto) 0.1 10 ^3/uL (0-0.8); Hematocrit 26.7 % (41.0-53.0); Hemoglobin 8.8 g/dL (13.5-17.5); Lymphocytes # (auto) 1.4 10 ^3/uL (0.4-5.4); Lymphocytes % (auto) 21.8 % (10.0-50.0); Mean Corpuscular Hemoglobin 35.8 pg (28.0-32.0); Mean Corpuscular Hgb Conc. 32.9 g/dL (32.0-36.0); Mean Corpuscular Volume 108.6 fL (80.0-100.0); Monocytes # (auto) 0.6 10 ^3/uL (0-1.3); Monocytes % (auto) 9.6 % (0.0-12.0); Neutrophils # (auto) 4.1 10 ^3/uL (1.6-8.6); Neutrophils % (auto) 65.2 % (37.0-80.0); Red Blood Cells 2.46 10^6/uL (4.5-5.90); White Blood Cell 6.4 10^3/uL (4.4-10.8)
[2022-08-10 16:52] VITALS: BP 124/60
[2022-08-10 17:13] LABS: Albumin 3.4 g/dL (3.4-5.0); BUN/Creatinine Ratio 10.4; Calcium 8.2 mg/dL (8.5-10.1); Potassium 3.6 mmol/L (3.5-5.1)
[2022-08-10 17:15] LABS: Bilirubin, Total 0.3 mg/dL (0.2-1.0); Total Protein 6.9 g/dL (6.4-8.2)
[2022-08-10 17:26] LABS: Folate (Folic Acid) > 24.00 ng/mL (5.38-24)
[2022-08-10 17:30] LABS: INR 0.99 (0.9-1.15); Partial Thromboplastin Time 28.8 sec (24.6-33.4)
[2022-08-10] MEDS: TAMSULOSIN HYDROCHLORIDE 0.4 MG CAP PO SCH (18:03)
[2022-08-10 20:00] VITALS: BP 103/58
[2022-08-10] MEDS: ATORVASTATIN 20 MG TAB PO SCH (21:47)
[2022-08-10] MEDS: ceFAZolin 1GM/50ML 50 ML IV SCH (21:47)
[2022-08-10 22:11] LABS: Urine Bacteria FEW /hpf (None Seen); Urine Blood Negative /uL (Negative); Urine Specific Gravity 1.007 (1.001-1.035); Urine WBC 1 /hpf (0 - 3)
[2022-08-11] MEDS: HYDROcodone-ACET 5/325MG TAB PO PRN ×4 (03:05→22:07)
[2022-08-11 05:00] VITALS: BP 104/65
[2022-08-11] MEDS: ceFAZolin 1GM/50ML 50 ML IV SCH ×3 (06:23→22:05)
[2022-08-11 07:07] LABS: Basophils # (auto) 0.1 10 ^3/uL (0-0.2); Eosinophils # (auto) 0.1 10 ^3/uL (0-0.8); Hemoglobin 7.9 g/dL (13.5-17.5); Monocytes % (auto) 9.5 % (0.0-12.0)
[2022-08-11 07:09] LABS: Basophils % (auto) 1.2 % (0.0-2.0); Eosinophils % (auto) 0.7 % (0.0-7.0); Hematocrit 23.1 % (41.0-53.0); Lymphocytes # (auto) 1.4 10 ^3/uL (0.4-5.4); Lymphocytes % (auto) 18.1 % (10.0-50.0); Mean Corpuscular Hemoglobin 36.8 pg (28.0-32.0); Mean Corpuscular Hgb Conc. 34.2 g/dL (32.0-36.0); Mean Corpuscular Volume 107.8 fL (80.0-100.0); Monocytes # (auto) 0.8 10 ^3/uL (0-1.3); Neutrophils # (auto) 5.6 10 ^3/uL (1.6-8.6); Neutrophils % (auto) 70.5 % (37.0-80.0); Red Blood Cells 2.15 10^6/uL (4.5-5.90); Red Cell Distribution Width 13.7 % (11.8-14.3)
[2022-08-11 07:47] LABS: Calcium 8.3 mg/dL (8.5-10.1)
[2022-08-11 07:51] LABS: BUN/Creatinine Ratio 11.3
[2022-08-11 08:33] LABS: Potassium 3.8 mmol/L (3.5-5.1)
[2022-08-11 09:00] VITALS: BP 116/59
[2022-08-11] MEDS: PANTOPRAZOLE 40 MG TAB PO SCH (09:27)
[2022-08-11] MEDS ORDERED: CYANOCOBALAMIN 500 MCG TAB PO SCH (10:00)
[2022-08-11] MEDS ORDERED: FUROSEMIDE 20 MG/2 ML VIAL IV SCH (10:00)
[2022-08-11] MEDS: FOLIC ACID 1 MG TAB PO SCH ×2 (11:36→14:39)
[2022-08-11 13:00] VITALS: BP 117/61
[2022-08-11] MEDS ORDERED: FUROSEMIDE 20 MG/2 ML VIAL IV ONE (13:30)
[2022-08-11] MEDS ORDERED: POTASSIUM CHL 10 Meq TABLET PO ONE (13:30)
[2022-08-11] MEDS ORDERED: methylPREDNISolone SOD SUCC 40 MG/ML VL IV ONE (15:45)
[2022-08-11 16:53] VITALS: BP 120/70
[2022-08-11] MEDS: TAMSULOSIN HYDROCHLORIDE 0.4 MG CAP PO SCH (18:12)
[2022-08-11 20:00] VITALS: BP 115/54
[2022-08-11 22:00] VITALS: BP 115/54
[2022-08-11] MEDS: ATORVASTATIN 20 MG TAB PO SCH (22:06)
[2022-08-11] MEDS: FUROSEMIDE 20 MG/2 ML VIAL IV SCH (22:06)
[2022-08-11] MEDS: POTASSIUM CHL 10 Meq TABLET PO SCH (22:08)
[2022-08-12] MEDS: HYDROcodone-ACET 5/325MG TAB PO PRN ×4 (04:18→22:40)
[2022-08-12 05:00] VITALS: BP 121/71
[2022-08-12] MEDS: ceFAZolin 1GM/50ML 50 ML IV SCH ×3 (06:01→22:38)
[2022-08-12 06:56] LABS: Calcium 8.6 mg/dL (8.5-10.1); Potassium 3.9 mmol/L (3.5-5.1)
[2022-08-12 06:59] LABS: BUN/Creatinine Ratio 14.3
[2022-08-12 07:30] VITALS: BP 128/62
[2022-08-12 09:00] VITALS: BP 128/62
[2022-08-12] MEDS: FOLIC ACID 1 MG TAB PO SCH (10:00)
[2022-08-12] MEDS: CYANOCOBALAMIN 500 MCG TAB PO SCH (10:01)
[2022-08-12] MEDS: POTASSIUM CHL 10 Meq TABLET PO SCH (10:02)
[2022-08-12] MEDS: PANTOPRAZOLE 40 MG TAB PO SCH (10:02)
[2022-08-12] MEDS: FUROSEMIDE 20 MG/2 ML VIAL IV SCH (10:08)
[2022-08-12 13:00] VITALS: BP 123/63
[2022-08-12 16:50] VITALS: BP 120/63
[2022-08-12] MEDS: TAMSULOSIN HYDROCHLORIDE 0.4 MG CAP PO SCH (18:04)
[2022-08-12 20:00] VITALS: BP 128/67
[2022-08-12] MEDS: ATORVASTATIN 20 MG TAB PO SCH (22:39)
[2022-08-13 00:19] VITALS: BP 128/67
[2022-08-13] MEDS: HYDROcodone-ACET 5/325MG TAB PO PRN ×4 (04:43→22:44)
[2022-08-13 05:10] VITALS: BP 114/45
[2022-08-13] MEDS: ceFAZolin 1GM/50ML 50 ML IV SCH ×3 (06:06→22:38)
[2022-08-13 06:07] LABS: Eosinophils # (auto) 0 10 ^3/uL (0-0.8); Hemoglobin 8.3 g/dL (13.5-17.5); Mean Corpuscular Hemoglobin 36.6 pg (28.0-32.0); Red Blood Cells 2.26 10^6/uL (4.5-5.90); Red Cell Distribution Width 13.7 % (11.8-14.3)
[2022-08-13 06:14] LABS: Basophils # (auto) 0 10 ^3/uL (0-0.2); Basophils % (auto) 0.6 % (0.0-2.0); Eosinophils % (auto) 0.4 % (0.0-7.0); Hematocrit 24.1 % (41.0-53.0); Lymphocytes % (auto) 26.3 % (10.0-50.0); Mean Corpuscular Hgb Conc. 34.3 g/dL (32.0-36.0); Mean Corpuscular Volume 106.8 fL (80.0-100.0); Monocytes # (auto) 0.8 10 ^3/uL (0-1.3); Monocytes % (auto) 10.8 % (0.0-12.0); Neutrophils # (auto) 4.8 10 ^3/uL (1.6-8.6); Neutrophils % (auto) 61.9 % (37.0-80.0); White Blood Cell 7.8 10^3/uL (4.4-10.8)
[2022-08-13 06:34] LABS: Calcium 8.4 mg/dL (8.5-10.1); Potassium 3.3 mmol/L (3.5-5.1)
[2022-08-13 06:38] LABS: BUN/Creatinine Ratio 17.9
[2022-08-13] MEDS ORDERED: FUROSEMIDE 20 MG/2 ML VIAL IV SCH (07:00)
[2022-08-13 08:05] VITALS: BP 105/55
[2022-08-13] MEDS ORDERED: POTASSIUM CHL 10 Meq TABLET PO SCH (10:00)
[2022-08-13] MEDS: FOLIC ACID 1 MG TAB PO SCH (10:35)
[2022-08-13] MEDS: CYANOCOBALAMIN 500 MCG TAB PO SCH (10:36)
[2022-08-13] MEDS: PANTOPRAZOLE 40 MG TAB PO SCH (10:36)
[2022-08-13 12:05] VITALS: BP 125/64
[2022-08-13] MEDS ORDERED: POTASSIUM CHL 20 Meq TABLET PO ONE (12:30)
[2022-08-13] MEDS ORDERED: predniSONE 20 MG TAB PO ONE (12:30)
[2022-08-13 14:05] VITALS: BP 110/60
[2022-08-13] MEDS ORDERED: FLUoxetine HCL 20 MG CAP PO ONE (16:15)
[2022-08-13] MEDS: TAMSULOSIN HYDROCHLORIDE 0.4 MG CAP PO SCH (16:35)
[2022-08-13 22:00] VITALS: BP 104/51
[2022-08-13] MEDS: FUROSEMIDE 20 MG/2 ML VIAL IV SCH (22:42)
[2022-08-13] MEDS: ATORVASTATIN 20 MG TAB PO SCH (22:43)
[2022-08-13] MEDS: POTASSIUM CHL 10 Meq TABLET PO SCH (22:43)
[2022-08-14 05:00] VITALS: BP 103/50
[2022-08-14] MEDS: HYDROcodone-ACET 5/325MG TAB PO PRN ×4 (05:40→23:33)
[2022-08-14] MEDS: ceFAZolin 1GM/50ML 50 ML IV SCH ×3 (05:40→22:21)
[2022-08-14 06:25] LABS: Potassium 3.9 mmol/L (3.5-5.1)
[2022-08-14 06:31] LABS: Calcium 8.4 mg/dL (8.5-10.1)
[2022-08-14 08:00] VITALS: BP 113/55
[2022-08-14] MEDS: FOLIC ACID 1 MG TAB PO SCH (09:26)
[2022-08-14] MEDS: CYANOCOBALAMIN 500 MCG TAB PO SCH (09:26)
[2022-08-14] MEDS: predniSONE 20 MG TAB PO SCH (09:26)
[2022-08-14] MEDS: PANTOPRAZOLE 40 MG TAB PO SCH (09:26)
[2022-08-14] MEDS: FLUoxetine HCL 20 MG CAP PO SCH (09:27)
[2022-08-14] MEDS: FUROSEMIDE 20 MG/2 ML VIAL IV SCH ×2 (09:27→22:22)
[2022-08-14] MEDS: POTASSIUM CHL 10 Meq TABLET PO SCH ×2 (09:32→22:21)
[2022-08-14 12:00] VITALS: BP 107/59
[2022-08-14 16:00] VITALS: BP 123/66
[2022-08-14] MEDS: TAMSULOSIN HYDROCHLORIDE 0.4 MG CAP PO SCH (17:28)
[2022-08-14 22:00] VITALS: BP 112/43
[2022-08-14] MEDS: ATORVASTATIN 20 MG TAB PO SCH (22:21)
[2022-08-15 05:00] VITALS: BP 112/62
[2022-08-15] MEDS: ceFAZolin 1GM/50ML 50 ML IV SCH (05:30)
[2022-08-15 05:33] LABS: Albumin 3.3 g/dL (3.4-5.0); Calcium 8.3 mg/dL (8.5-10.1); Potassium 3.7 mmol/L (3.5-5.1)
[2022-08-15] MEDS: HYDROcodone-ACET 5/325MG TAB PO PRN ×3 (05:33→18:57)
[2022-08-15 05:37] LABS: Bilirubin, Total 0.4 mg/dL (0.2-1.0); Total Protein 6.2 g/dL (6.4-8.2)
[2022-08-15 08:00] VITALS: BP 113/44
[2022-08-15] MEDS: FOLIC ACID 1 MG TAB PO SCH (11:10)
[2022-08-15] MEDS: FLUoxetine HCL 20 MG CAP PO SCH (11:10)
[2022-08-15] MEDS: PANTOPRAZOLE 40 MG TAB PO SCH (11:12)
[2022-08-15] MEDS: predniSONE 20 MG TAB PO SCH (11:12)
[2022-08-15] MEDS: POTASSIUM CHL 10 Meq TABLET PO SCH ×2 (11:13→22:04)
[2022-08-15] MEDS: CYANOCOBALAMIN 500 MCG TAB PO SCH (11:16)
[2022-08-15] MEDS: FUROSEMIDE 20 MG/2 ML VIAL IV SCH ×2 (11:32→22:03)
[2022-08-15 12:00] VITALS: BP 119/67
[2022-08-15] MEDS: CEPHALEXIN 250 MG CAP PO SCH ×2 (14:48→22:04)
[2022-08-15 16:00] VITALS: BP 116/62
[2022-08-15] MEDS: TAMSULOSIN HYDROCHLORIDE 0.4 MG CAP PO SCH (18:54)
[2022-08-15 20:00] VITALS: BP 119/67
[2022-08-15 22:00] VITALS: BP 116/53
[2022-08-15] MEDS: ATORVASTATIN 20 MG TAB PO SCH (22:04)
[2022-08-16] MEDS: HYDROcodone-ACET 5/325MG TAB PO PRN ×4 (01:13→19:33)
[2022-08-16 05:00] VITALS: BP 130/60
[2022-08-16 05:06] LABS: Basophils # (auto) 0 10 ^3/uL (0-0.2); Basophils % (auto) 0.2 % (0.0-2.0); Eosinophils # (auto) 0 10 ^3/uL (0-0.8); Eosinophils % (auto) 0.1 % (0.0-7.0); Hematocrit 25.8 % (41.0-53.0); Hemoglobin 8.9 g/dL (13.5-17.5); Lymphocytes # (auto) 1.8 10 ^3/uL (0.4-5.4); Lymphocytes % (auto) 25.1 % (10.0-50.0); Mean Corpuscular Hemoglobin 36.8 pg (28.0-32.0); Mean Corpuscular Hgb Conc. 34.4 g/dL (32.0-36.0); Mean Corpuscular Volume 106.9 fL (80.0-100.0); Monocytes # (auto) 0.9 10 ^3/uL (0-1.3); Monocytes % (auto) 11.8 % (0.0-12.0); Neutrophils # (auto) 4.5 10 ^3/uL (1.6-8.6); Neutrophils % (auto) 62.8 % (37.0-80.0); Red Blood Cells 2.41 10^6/uL (4.5-5.90); Red Cell Distribution Width 13.2 % (11.8-14.3); White Blood Cell 7.2 10^3/uL (4.4-10.8)
[2022-08-16 05:31] LABS: Potassium 3.9 mmol/L (3.5-5.1)
[2022-08-16 05:37] LABS: BUN/Creatinine Ratio 21.5; Calcium 8.7 mg/dL (8.5-10.1); Uric Acid 9.5 mg/dL (3.5-7.2)
[2022-08-16] MEDS: CEPHALEXIN 250 MG CAP PO SCH ×3 (06:04→21:10)
[2022-08-16 08:00] VITALS: BP 116/55
[2022-08-16] MEDS: FOLIC ACID 1 MG TAB PO SCH (11:04)
[2022-08-16] MEDS: POTASSIUM CHL 10 Meq TABLET PO SCH (11:04)
[2022-08-16] MEDS: FLUoxetine HCL 20 MG CAP PO SCH (11:05)
[2022-08-16] MEDS: PANTOPRAZOLE 40 MG TAB PO SCH (11:05)
[2022-08-16] MEDS: CYANOCOBALAMIN 500 MCG TAB PO SCH (11:06)
[2022-08-16] MEDS: predniSONE 20 MG TAB PO SCH (11:06)
[2022-08-16 12:00] VITALS: BP 119/65
[2022-08-16] MEDS: FUROSEMIDE 20 MG/2 ML VIAL IV SCH (13:28)
[2022-08-16] MEDS ORDERED: FUROSEMIDE 20 MG/2 ML VIAL ONE (13:31)
[2022-08-16 16:00] VITALS: BP 117/60
[2022-08-16] MEDS: TAMSULOSIN HYDROCHLORIDE 0.4 MG CAP PO SCH (18:50)
[2022-08-16] MEDS: ATORVASTATIN 20 MG TAB PO SCH (21:09)
[2022-08-16] MEDS: ACETYLCYSTEINE ORAL for CIN 20%(200MG/ML) 4ML PO SCH (21:12)
[2022-08-16 23:02] VITALS: BP 113/59
[2022-08-17] VITALS (9 sets, daily range): BP systolic 104–129; BP diastolic 51–83
[2022-08-17] MEDS: HYDROcodone-ACET 5/325MG TAB PO PRN ×4 (00:57→20:07)
[2022-08-17] MEDS: CEPHALEXIN 250 MG CAP PO SCH ×3 (05:35→21:56)
[2022-08-17] MEDS: FUROSEMIDE 20 MG/2 ML VIAL IV SCH (06:39)
[2022-08-17 06:59] LABS: Basophils # (auto) 0 10 ^3/uL (0-0.2); Eosinophils # (auto) 0 10 ^3/uL (0-0.8); Eosinophils % (auto) 0.5 % (0.0-7.0); Hemoglobin 9.2 g/dL (13.5-17.5); Lymphocytes # (auto) 2.6 10 ^3/uL (0.4-5.4); Mean Corpuscular Volume 105.7 fL (80.0-100.0); Neutrophils # (auto) 4.1 10 ^3/uL (1.6-8.6)
[2022-08-17 07:01] LABS: Basophils % (auto) 0.4 % (0.0-2.0); Hematocrit 26.6 % (41.0-53.0); Lymphocytes % (auto) 33.6 % (10.0-50.0); Mean Corpuscular Hemoglobin 36.6 pg (28.0-32.0); Mean Corpuscular Hgb Conc. 34.6 g/dL (32.0-36.0); Monocytes % (auto) 12.3 % (0.0-12.0); Neutrophils % (auto) 53.2 % (37.0-80.0); Red Blood Cells 2.52 10^6/uL (4.5-5.90); Red Cell Distribution Width 13.5 % (11.8-14.3); White Blood Cell 7.7 10^3/uL (4.4-10.8)
[2022-08-17 07:07] LABS: INR 1.06 (0.9-1.15); Partial Thromboplastin Time 25.6 sec (24.6-33.4)
[2022-08-17 07:11] LABS: Calcium 8.6 mg/dL (8.5-10.1); Potassium 3.6 mmol/L (3.5-5.1)
[2022-08-17] MEDS: predniSONE 20 MG TAB PO SCH (11:14)
[2022-08-17] MEDS: FLUoxetine HCL 20 MG CAP PO SCH (11:15)
[2022-08-17] MEDS: ALLOPURINOL 100 MG TAB PO SCH (11:15)
[2022-08-17] MEDS: FOLIC ACID 1 MG TAB PO SCH (11:15)
[2022-08-17] MEDS: PANTOPRAZOLE 40 MG TAB PO SCH (11:15)
[2022-08-17] MEDS: CYANOCOBALAMIN 500 MCG TAB PO SCH (11:15)
[2022-08-17] MEDS: POTASSIUM CHL 10 Meq TABLET PO SCH (11:15)
[2022-08-17] MEDS ORDERED: IODIXANOL 320MG/ML 100ML BTL IV ONE ×2 (12:01→12:35)
[2022-08-17] MEDS ORDERED: LIDOCAINE 2%HCL (LOCAL ANESTH.) INJ 20ML MDV ONE (12:01)
[2022-08-17] MEDS ORDERED: HEPARIN SODIUM (PORCINE) 5000 UNITS/ML 1ML VIAL ONE (12:09)
[2022-08-17] MEDS ORDERED: VERAPAMIL 2.5MG/ML INJ 2ML VIAL IV ONE (12:09)
[2022-08-17] MEDS ORDERED: fentaNYL CITRATE 100 MCG/2 ML VL ONE (12:09)
[2022-08-17] MEDS ORDERED: ANGIOMAX 250 MG VIAL IV ONE (12:09)
[2022-08-17] MEDS ORDERED: MIDAZOLAM HCL 2MG/2ML 2ml VIAL (1mg/ml) ONE (12:10)
[2022-08-17] MEDS ORDERED: SODIUM CHL 0.9% 0 ML ONE (12:10)
[2022-08-17] MEDS: ACETYLCYSTEINE ORAL for CIN 20%(200MG/ML) 4ML PO SCH ×2 (14:27→21:57)
[2022-08-17] MEDS: TAMSULOSIN HYDROCHLORIDE 0.4 MG CAP PO SCH (18:08)
[2022-08-17] MEDS: ATORVASTATIN 20 MG TAB PO SCH (21:57)
[2022-08-18] MEDS: HYDROcodone-ACET 5/325MG TAB PO PRN ×3 (02:17→14:35)
[2022-08-18 05:00] VITALS: BP 117/66
[2022-08-18] MEDS: FUROSEMIDE 20 MG/2 ML VIAL IV SCH (06:20)
[2022-08-18] MEDS: CEPHALEXIN 250 MG CAP PO SCH ×2 (06:20→14:35)
[2022-08-18 06:53] LABS: Calcium 8.8 mg/dL (8.5-10.1); Potassium 3.6 mmol/L (3.5-5.1)
[2022-08-18 06:55] LABS: BUN/Creatinine Ratio 19.2
[2022-08-18 08:38] VITALS: BP 124/70
[2022-08-18] MEDS: FOLIC ACID 1 MG TAB PO SCH (09:13)
[2022-08-18] MEDS: ALLOPURINOL 100 MG TAB PO SCH (09:13)
[2022-08-18] MEDS: CYANOCOBALAMIN 500 MCG TAB PO SCH (09:13)
[2022-08-18] MEDS: FLUoxetine HCL 20 MG CAP PO SCH (09:14)
[2022-08-18] MEDS: POTASSIUM CHL 10 Meq TABLET PO SCH (09:14)
[2022-08-18] MEDS: PANTOPRAZOLE 40 MG TAB PO SCH (09:14)
[2022-08-18] MEDS: predniSONE 20 MG TAB PO SCH (09:16)
[2022-08-18 12:37] VITALS: BP 125/67
[2022-08-18] MEDS ORDERED: ALL100T PO (13:00)
[2022-08-18] MEDS ORDERED: POTA-167 PO (13:00)
[2022-08-18] MEDS ORDERED: CYAN500T3 PO (13:00)
== END 2022-08-18 15:20 | disposition home or self-care (01) | DRG 286 ==
LOC: WEST WING 11:04
PROVIDERS: ADMIT Internal Medicine; ATTEND Internal Medicine
PROC: 4A023N8 Measurement of Cardiac Sampling and Pressure, Bilateral, Percutaneous Approach (ICD-10-PCS; principal; 2022-08-17)
PROC: B211YZZ Fluoroscopy of Multiple Coronary Arteries using Other Contrast (ICD-10-PCS; 2022-08-17)
PROC: B51CYZZ Fluoroscopy of Left Lower Extremity Veins using Other Contrast (ICD-10-PCS; 2022-08-17)
PROC: B51 Imaging, Veins, Fluoroscopy (ICD-10-PCS; 2022-08-17)
DX: I13.0 Hypertensive heart and chronic kidney disease with heart failure and stage 1 through stage 4 chronic kidney disease, or unspecified chronic kidney disease (principal); I50.31 Acute diastolic (congestive) heart failure; L03.115 Cellulitis of right lower limb; L03.116 Cellulitis of left lower limb; N40.0 Benign prostatic hyperplasia without lower urinary tract symptoms; D64.9 Anemia, unspecified; E66.9 Obesity, unspecified; E78.5 Hyperlipidemia, unspecified; E53.8 Deficiency of other specified B group vitamins; Z20.822 Contact with and (suspected) exposure to COVID-19; D63.8 Anemia in other chronic diseases classified elsewhere; G89.29 Other chronic pain; E55.9 Vitamin D deficiency, unspecified; M10.9 Gout, unspecified; N18.30 Chronic kidney disease, stage 3 unspecified; F32.A Depression, unspecified; Z88.8 Allergy status to other drugs, medicaments and biological substances; Z68.31 Body mass index [BMI] 31.0-31.9, adult
CPT/HCPCS: 36415; 71045; 80048; 80053; 80061; 81001; 82607; 82746; 83880; 84550; 85025; 85610; 85730; 87081; 93005; 99152; 99153; C1751; G0378; J0690; J2250; Q9967

== ENCOUNTER → 2022-08-23 | Outpatient (CLI) | payer OTHER, MEDICAID ==
[~2022-08-23] MED LIST changes: +ALL100T PO; -GABA300C10 PO; -LEVO250T69 PO; -MID10T PO; +POTA-167 PO
[2022-08-23 09:29] LABS: Basophils # (auto) 0.1 10 ^3/uL (0-0.2); Eosinophils # (auto) 0.2 10 ^3/uL (0-0.8); Hemoglobin 10.2 g/dL (13.5-17.5); Lymphocytes # (auto) 1.4 10 ^3/uL (0.4-5.4); Monocytes # (auto) 0.8 10 ^3/uL (0-1.3); Monocytes % (auto) 8.6 % (0.0-12.0)
[2022-08-23 09:31] LABS: Basophils % (auto) 0.8 % (0.0-2.0); Eosinophils % (auto) 2.1 % (0.0-7.0); Hematocrit 29.8 % (41.0-53.0); Lymphocytes % (auto) 14.2 % (10.0-50.0); Mean Corpuscular Hemoglobin 36.4 pg (28.0-32.0); Mean Corpuscular Hgb Conc. 34.1 g/dL (32.0-36.0); Mean Corpuscular Volume 106.8 fL (80.0-100.0); Neutrophils # (auto) 7.3 10 ^3/uL (1.6-8.6); Neutrophils % (auto) 74.3 % (37.0-80.0); Red Blood Cells 2.79 10^6/uL (4.5-5.90); White Blood Cell 9.8 10^3/uL (4.4-10.8)
[2022-08-23 10:00] LABS: Albumin 3.5 g/dL (3.4-5.0); BUN/Creatinine Ratio 14.8; Calcium 8.1 mg/dL (8.5-10.1)
[2022-08-23 10:02] LABS: Bilirubin, Total 0.6 mg/dL (0.2-1.0); Total Protein 6.5 g/dL (6.4-8.2)
== END | disposition home or self-care (01) ==
LOC: LAB 09:09
PROVIDERS: ATTEND Internal Medicine
DX: I50.9 Heart failure, unspecified (principal)
CPT/HCPCS: 36415; 80053; 85025

== ENCOUNTER → 2022-08-29 | Outpatient (CLI) | payer OTHER, MEDICAID ==
[2022-08-29 07:37] LABS: Calcium 8.4 mg/dL (8.5-10.1); Potassium 4.2 mmol/L (3.5-5.1)
[2022-08-29 07:39] LABS: BUN/Creatinine Ratio 17.3
== END | disposition home or self-care (01) ==
LOC: LAB 06:34
PROVIDERS: ATTEND Internal Medicine
DX: E87.6 Hypokalemia (principal)
CPT/HCPCS: 36415; 80048

== ENCOUNTER → 2022-09-05 | Outpatient (CLI) | payer OTHER, MEDICAID ==
[2022-09-05 07:05] LABS: Urine Bacteria NONE SEEN /hpf (None Seen); Urine Blood Negative /uL (Negative); Urine Specific Gravity 1.008 (1.001-1.035); Urine WBC <1 /hpf (0 - 3)
[2022-09-05 07:32] LABS: BUN/Creatinine Ratio 25.9; Calcium 8.1 mg/dL (8.5-10.1)
== END | disposition home or self-care (01) ==
LOC: LAB 06:40
PROVIDERS: ATTEND Internal Medicine
DX: I10 Essential (primary) hypertension (principal)
CPT/HCPCS: 36415; 80048; 81001

== ENCOUNTER → 2022-09-21 | Outpatient (CLI) | payer OTHER, MEDICAID ==
[2022-09-21 07:19] LABS: Albumin 3.4 g/dL (3.4-5.0); BUN/Creatinine Ratio 21.4; Potassium 3.6 mmol/L (3.5-5.1); Uric Acid 8.2 mg/dL (3.5-7.2)
[2022-09-21 07:23] LABS: Bilirubin, Total 0.3 mg/dL (0.2-1.0); Phosphorus 3.4 mg/dL (2.5-4.90); Total Protein 6.1 g/dL (6.4-8.2)
[2022-09-21 07:54] LABS: Protein, Urine 11.3 mg/dL (0.0-11.9)
== END | disposition home or self-care (01) ==
LOC: LAB 06:42
PROVIDERS: ATTEND Internal Medicine
DX: N18.31 Chronic kidney disease, stage 3a (principal); R80.9 Proteinuria, unspecified; E21.3 Hyperparathyroidism, unspecified; D61.2 Aplastic anemia due to other external agents
CPT/HCPCS: 36415; 80053; 82570; 83735; 83970; 84100; 84156; 84550

== ENCOUNTER → 2022-10-03 | Outpatient (CLI) | payer OTHER, MEDICAID ==
[2022-10-03 08:22] LABS: Calcium 8.7 mg/dL (8.5-10.1); Potassium 3.8 mmol/L (3.5-5.1)
[2022-10-03 08:25] LABS: BUN/Creatinine Ratio 27.7
== END | disposition home or self-care (01) ==
LOC: LAB 06:51
PROVIDERS: ATTEND Internal Medicine
DX: I89.0 Lymphedema, not elsewhere classified (principal); E87.6 Hypokalemia
CPT/HCPCS: 36415; 80048

== ENCOUNTER → 2022-10-31 | Outpatient (CLI) | payer OTHER, MEDICAID ==
[2022-10-31 07:13] LABS: Hematocrit 32.4 % (41.0-53.0); White Blood Cell 10.5 10^3/uL (4.4-10.8)
[2022-10-31 07:14] LABS: Hemoglobin 10.9 g/dL (13.5-17.5); Mean Corpuscular Hgb Conc. 33.5 g/dL (32.0-36.0); Mean Corpuscular Volume 104.6 fL (80.0-100.0); Red Cell Distribution Width 14.9 % (11.8-14.3)
[2022-10-31 07:15] LABS: Urine Bacteria NONE SEEN /hpf (None Seen); Urine Blood Negative /uL (Negative); Urine Specific Gravity 1.003 (1.001-1.035); Urine WBC <1 /hpf (0 - 3)
[2022-10-31 07:19] LABS: Basophils % (manual) 0 (0.0-2.0); Blast Cells 0; Eosinophils % (manual) 0 (0-7); Metamyelocytes % 0; Promyelocytes % 0; Reactive Lymphocytes 0
[2022-10-31 07:59] LABS: Albumin 3.3 g/dL (3.4-5.0); Calcium 8.6 mg/dL (8.5-10.1); Potassium 3.5 mmol/L (3.5-5.1)
[2022-10-31 08:03] LABS: BUN/Creatinine Ratio 21.7; Bilirubin, Total 0.4 mg/dL (0.2-1.0); Total Protein 6.7 g/dL (6.4-8.2)
[2022-10-31 11:41] LABS: Band Neutrophils % (manual) 22; Lymphocytes % (manual) 23 (10.0-50.0); Monocytes % (manual) 6 (0-12); Myelocytes % 2
[2022-11-02 08:37] LABS: Creatinine Clearance, Urine 31.31 mL/min (75-115)
== END | disposition home or self-care (01) ==
LOC: LAB 06:40
PROVIDERS: ATTEND Internal Medicine
DX: R73.01 Impaired fasting glucose (principal); I10 Essential (primary) hypertension; Z79.899 Other long term (current) drug therapy
CPT/HCPCS: 36415; 80053; 81001; 82306; 82575; 83036; 85007; 85027

== ENCOUNTER → 2023-01-06 | Outpatient (CLI) | payer OTHER, MEDICAID ==
[2023-01-06 07:51] LABS: Albumin 3.4 g/dL (3.4-5.0); Calcium 8.5 mg/dL (8.5-10.1); Magnesium 2.5 mg/dL (1.6-2.6); Potassium 3.3 mmol/L (3.5-5.1)
[2023-01-06 07:56] LABS: BUN/Creatinine Ratio 13.4; Bilirubin, Total 0.9 mg/dL (0.2-1.0); Phosphorus 2.3 mg/dL (2.5-4.90); Total Protein 6.4 g/dL (6.4-8.2)
[2023-01-06 08:00] LABS: Creatinine, Urine 28 mg/dL (30.0-125.0)
[2023-01-06 08:11] LABS: Micro Albumin < 5.00 mg/L (0-30.0)
== END | disposition home or self-care (01) ==
LOC: LAB 06:26
PROVIDERS: ATTEND Internal Medicine Nephrology
DX: N18.31 Chronic kidney disease, stage 3a (principal); M10.9 Gout, unspecified; E61.2 Magnesium deficiency; R80.9 Proteinuria, unspecified
CPT/HCPCS: 36415; 80053; 82043; 82570; 83735; 83970; 84100; 84550

== ENCOUNTER → 2023-02-16 | Outpatient (CLI) | payer OTHER, MEDICAID ==
[2023-02-16 06:49] LABS: Urine Bacteria NONE SEEN /hpf (None Seen); Urine Blood TRACE /uL (Negative); Urine Specific Gravity 1.008 (1.001-1.035); Urine WBC 1 /hpf (0 - 3)
[2023-02-16 08:12] LABS: Calcium 8.7 mg/dL (8.5-10.1)
[2023-02-16 08:17] LABS: Albumin 3.2 g/dL (3.4-5.0); BUN/Creatinine Ratio 10.8 (10.0-20.0); Bilirubin, Total 0.5 mg/dL (0.2-1.0); Total Protein 6.9 g/dL (6.4-8.2); Uric Acid 6.6 mg/dL (3.5-7.2)
== END | disposition home or self-care (01) ==
LOC: LAB 06:25
PROVIDERS: ATTEND Internal Medicine
DX: I10 Essential (primary) hypertension (principal); R73.9 Hyperglycemia, unspecified
CPT/HCPCS: 36415; 80053; 81001; 83036; 84550

== ENCOUNTER 2023-03-13 12:10 | Emergency (ER) | payer OTHER, MEDICAID ==
[~2023-03-13] VITALS: Ht 165.1 cm; Wt 83.2 kg
[2023-03-13 13:50] LABS: Basophils # (auto) 0.1 10 ^3/uL (0-0.2); Eosinophils # (auto) 0 10 ^3/uL (0-0.8); Hematocrit 35.4 % (41.0-53.0); Neutrophils # (auto) 2.7 10 ^3/uL (1.6-8.6); Nucleated Red Blood Cells % 0.1 %; White Blood Cell 6.4 10^3/uL (4.4-10.8)
[2023-03-13 13:53] LABS: Basophils % (auto) 1.3 % (0.0-2.0); Eosinophils % (auto) 0.5 % (0.0-7.0); Hemoglobin 12.4 g/dL (13.5-17.5); Lymphocytes # (auto) 2.7 10 ^3/uL (0.4-5.4); Lymphocytes % (auto) 41.5 % (10.0-50.0); Mean Corpuscular Hemoglobin 35.6 pg (28.0-32.0); Mean Corpuscular Hgb Conc. 34.9 g/dL (32.0-36.0); Neutrophils % (auto) 41.7 % (37.0-80.0); Red Blood Cells 3.47 10^6/uL (4.5-5.90); Red Cell Distribution Width 14.3 % (11.8-14.3)
[2023-03-13 13:57] LABS: Albumin 3.3 g/dL (3.4-5.0); BUN/Creatinine Ratio 7.8 (10.0-20.0); Calcium 8.4 mg/dL (8.5-10.1); INR 0.99 (0.9-1.15); Partial Thromboplastin Time 34.4 sec (24.6-33.4); Potassium 3.2 mmol/L (3.5-5.1)
[2023-03-13 14:01] LABS: Bilirubin, Total 0.4 mg/dL (0.2-1.0); Total Protein 6.7 g/dL (6.4-8.2)
[2023-03-13 17:03] VITALS: BP 142/93
== END 2023-03-13 20:18 | disposition left against medical advice (07) ==
LOC: ER 12:10
DX: J44.9 Chronic obstructive pulmonary disease, unspecified (principal); E87.6 Hypokalemia; E46 Unspecified protein-calorie malnutrition; I10 Essential (primary) hypertension; E78.5 Hyperlipidemia, unspecified; Z68.30 Body mass index [BMI] 30.0-30.9, adult
CPT/HCPCS: 36415; 71045; 80053; 83880; 84484; 85025; 85610; 85730

== ENCOUNTER → 2023-04-21 | Outpatient (CLI) | payer OTHER, MEDICAID ==
[2023-04-21 07:16] LABS: BUN/Creatinine Ratio 14.1 (10.0-20.0); Calcium 8.7 mg/dL (8.5-10.1); Potassium 3.8 mmol/L (3.5-5.1)
== END | disposition home or self-care (01) ==
LOC: LAB 06:21
PROVIDERS: ATTEND Internal Medicine
DX: I50.32 Chronic diastolic (congestive) heart failure (principal); N18.31 Chronic kidney disease, stage 3a
CPT/HCPCS: 36415; 80048

== ENCOUNTER → 2023-06-07 | Outpatient (CLI) | payer OTHER, MEDICAID ==
[~2023-06-07] MED LIST changes: +FOLI-119 PO; -FOLI1TAB6 PO; -POTA-167 PO; +POTA-211 PO; -SIMV-8 PO; +SIMV20TA20 PO; -TAM04C PO; +TAMS-35 PO
[2023-06-07 07:54] LABS: Uric Acid 6.2 mg/dL (3.5-7.2)
== END | disposition home or self-care (01) ==
LOC: LAB 06:32
PROVIDERS: ATTEND Internal Medicine
DX: I50.30 Unspecified diastolic (congestive) heart failure (principal)
CPT/HCPCS: 36415; 84520; 84550

== ENCOUNTER → 2023-07-03 | Outpatient (CLI) | payer MEDICAID, OTHER ==
[2023-07-03 07:48] LABS: Basophils # (auto) 0.1 10 ^3/uL (0-0.2); Eosinophils # (auto) 0.4 10 ^3/uL (0-0.8); Lymphocytes # (auto) 2.6 10 ^3/uL (0.4-5.4); Monocytes # (auto) 0.7 10 ^3/uL (0-1.3)
[2023-07-03 07:51] LABS: Basophils % (auto) 1.3 % (0.0-2.0); Hematocrit 35.5 % (41.0-53.0); Lymphocytes % (auto) 31.3 % (10.0-50.0); Mean Corpuscular Hemoglobin 34.4 pg (28.0-32.0); Mean Corpuscular Hgb Conc. 33.9 g/dL (32.0-36.0); Mean Corpuscular Volume 101.5 fL (80.0-100.0); Monocytes % (auto) 8.5 % (0.0-12.0); Neutrophils # (auto) 4.5 10 ^3/uL (1.6-8.6); Neutrophils % (auto) 53.9 % (37.0-80.0); Nucleated Red Blood Cells % 0.1 %; Red Blood Cells 3.49 10^6/uL (4.5-5.90); Red Cell Distribution Width 15.3 % (11.8-14.3); White Blood Cell 8.3 10^3/uL (4.4-10.8)
[2023-07-03 08:13] LABS: Magnesium 2.4 mg/dL (1.6-2.6); Potassium 3.3 mmol/L (3.5-5.1); Uric Acid 5.8 mg/dL (3.5-7.2)
[2023-07-03 08:27] LABS: Albumin 3.4 g/dL (3.4-5.0); BUN/Creatinine Ratio 9.5 (10.0-20.0); Bilirubin, Total 0.3 mg/dL (0.2-1.0); Calcium 8.7 mg/dL (8.5-10.1); Phosphorus 2.6 mg/dL (2.5-4.90); Total Protein 6.7 g/dL (6.4-8.2)
[2023-07-03 08:42] LABS: Creatinine, Urine 90 mg/dL (30.0-125.0); Micro Albumin < 5.00 mg/L (0-30.0)
== END | disposition home or self-care (01) ==
LOC: LAB 06:30
PROVIDERS: ATTEND Internal Medicine Nephrology
DX: N18.31 Chronic kidney disease, stage 3a (principal); E83.39 Other disorders of phosphorus metabolism; R80.9 Proteinuria, unspecified; M10.9 Gout, unspecified
CPT/HCPCS: 36415; 80053; 82043; 82570; 83735; 83970; 84100; 84550; 85025

== ENCOUNTER → 2023-08-08 | Outpatient (CLI) | payer OTHER, MEDICAID ==
[2023-08-08 09:24] LABS: Urine Bacteria FEW /hpf (None Seen); Urine Blood TRACE /uL (Negative); Urine Clarity Clear (Clear); Urine Color Straw (Yellow); Urine Protein, UAD Negative (Negative); Urine Specific Gravity 1.011 (1.001-1.035); Urine Urobilinogen Normal (Negative); Urine WBC 1 /hpf (0 - 3); Urine pH 7.5 (5.0-8.0)
[2023-08-08 09:49] LABS: Alanine Aminotransferase 15 U/L (7-40); Alkaline Phosphatase 143 U/L (46-116); BUN/Creatinine Ratio 10.5 (10.0-20.0); Blood Urea Nitrogen 14 mg/dL (9-23); Calcium 9.3 mg/dL (8.5-10.1); Chloride 101 mmol/L (98-107); Glucose 132 mg/dL (74-106); Potassium 3.1 mmol/L (3.5-5.1); Sodium 139 mmol/L (136-145)
[2023-08-08 09:51] LABS: Albumin 4.4 g/dL (3.2-4.8); Aspartate Aminotransferase 12 U/L (13-40)
[2023-08-08 09:52] LABS: Total Protein 6.9 g/dL (5.7-8.2)
== END | disposition home or self-care (01) ==
LOC: LAB 08:53
PROVIDERS: ATTEND Internal Medicine
DX: E11.22 Type 2 diabetes mellitus with diabetic chronic kidney disease (principal); N18.9 Chronic kidney disease, unspecified; Z79.899 Other long term (current) drug therapy
CPT/HCPCS: 36415; 80053; 81001; 82306; 83036

== ENCOUNTER → 2023-08-16 | Outpatient (CLI) | payer OTHER, MEDICAID ==
[2023-08-16 13:13] LABS: Chloride 101 mmol/L (98-107); Potassium 3.3 mmol/L (3.5-5.1); Sodium 138 mmol/L (136-145)
[2023-08-16 13:14] LABS: Anion Gap 5 (5-15); Carbon Dioxide 32 mmol/L (20-30)
[2023-08-16 13:15] LABS: Calcium 9.3 mg/dL (8.7-10.4)
[2023-08-16 13:19] LABS: BUN/Creatinine Ratio 8.5 (10.0-20.0); Blood Urea Nitrogen 12 mg/dL (9-23); Glucose 92 mg/dL (74-106)
== END | disposition home or self-care (01) ==
LOC: LAB 12:37
PROVIDERS: ATTEND Internal Medicine
DX: I10 Essential (primary) hypertension (principal)
CPT/HCPCS: 36415; 80048; 84443

== ENCOUNTER → 2023-09-19 | Outpatient (CLI) | payer OTHER, MEDICAID ==
[2023-09-19 07:57] LABS: Creatinine, Urine 77.81 mg/dL (30.0-125.0)
[2023-09-19 07:59] LABS: Micro Albumin < 3.0 mg/L (<30.0)
[2023-09-19 08:03] LABS: Alanine Aminotransferase 14 U/L (7-40); Albumin 4.7 g/dL (3.2-4.8); Alkaline Phosphatase 156 U/L (46-116); Anion Gap 6 (5-15); Aspartate Aminotransferase 20 U/L (13-40); BUN/Creatinine Ratio 9.7 (10.0-20.0); Bilirubin, Total 0.5 mg/dL (0.2-1.0); Blood Urea Nitrogen 14 mg/dL (9-23); Calcium 9.4 mg/dL (8.5-10.1); Carbon Dioxide 34 mmol/L (20-30); Chloride 98 mmol/L (98-107); Glucose 116 mg/dL (74-106); Potassium 3.2 mmol/L (3.5-5.1); Sodium 138 mmol/L (136-145); Total Protein 7.3 g/dL (5.7-8.2)
[2023-09-19 08:27] LABS: Uric Acid 9.5 mg/dL (3.7-9.2)
[2023-09-19 08:28] LABS: Magnesium 2.4 mg/dL (1.6-2.6)
== END | disposition home or self-care (01) ==
LOC: LAB 06:03
PROVIDERS: ATTEND Internal Medicine Nephrology
DX: N18.30 Chronic kidney disease, stage 3 unspecified (principal); D63.1 Anemia in chronic kidney disease; N39.0 Urinary tract infection, site not specified; E21.3 Hyperparathyroidism, unspecified; R80.9 Proteinuria, unspecified; M10.9 Gout, unspecified; E55.9 Vitamin D deficiency, unspecified; E11.21 Type 2 diabetes mellitus with diabetic nephropathy
CPT/HCPCS: 36415; 80053; 82043; 82570; 83735; 83970; 84100; 84550

== ENCOUNTER → 2023-12-22 | Outpatient (CLI) | payer OTHER, MEDICAID ==
[2023-12-22 07:57] LABS: Protein, Urine < 6.0 mg/dL (0.0-11.9)
[2023-12-22 07:58] LABS: Creatinine, Urine 6.96 mg/dL (30.0-125.0)
[2023-12-22 08:00] LABS: Alanine Aminotransferase 22 U/L (7-40); Alkaline Phosphatase 161 U/L (46-116); Anion Gap 5 (5-15); BUN/Creatinine Ratio 8.8 (10.0-20.0); Blood Urea Nitrogen 12 mg/dL (9-23); Calcium 9.6 mg/dL (8.5-10.1); Carbon Dioxide 34 mmol/L (20-30); Chloride 101 mmol/L (98-107); Glucose 129 mg/dL (74-106); Micro Albumin < 3.0 mg/L (<30.0); Potassium 3.4 mmol/L (3.5-5.1); Sodium 140 mmol/L (136-145)
[2023-12-22 08:01] LABS: Albumin 4.8 g/dL (3.2-4.8); Aspartate Aminotransferase 21 U/L (13-40); Bilirubin, Total 0.5 mg/dL (0.2-1.0); Phosphorus 1.9 mg/dL (2.4-5.1); Total Protein 7.6 g/dL (5.7-8.2)
[2023-12-22 08:17] LABS: Magnesium 2.4 mg/dL (1.6-2.6)
== END | disposition home or self-care (01) ==
LOC: LAB 06:39
PROVIDERS: ATTEND Internal Medicine Nephrology
DX: N18.31 Chronic kidney disease, stage 3a (principal); E61.2 Magnesium deficiency; E21.3 Hyperparathyroidism, unspecified; R80.9 Proteinuria, unspecified
CPT/HCPCS: 36415; 80053; 82043; 82306; 82570; 83735; 83970; 84100; 84156

== ENCOUNTER → 2024-01-08 | Outpatient (CLI) | payer OTHER, MEDICAID ==
[2024-01-08 08:02] LABS: Basophils # (auto) 0.1 10 ^3/uL (0-0.2); Basophils % (auto) 1.1 % (0.0-2.0); Eosinophils # (auto) 0.2 10 ^3/uL (0-0.8); Eosinophils % (auto) 2.2 % (0.0-7.0); Hematocrit 38.5 % (41.0-53.0); Hemoglobin 12.7 g/dL (13.5-17.5); Lymphocytes # (auto) 2.5 10 ^3/uL (0.4-5.4); Lymphocytes % (auto) 25.5 % (10.0-50.0); Mean Corpuscular Hemoglobin 32.8 pg (28.0-32.0); Mean Corpuscular Hgb Conc. 32.9 g/dL (32.0-36.0); Mean Corpuscular Volume 99.5 fL (80.0-100.0); Monocytes # (auto) 0.6 10 ^3/uL (0-1.3); Monocytes % (auto) 6.1 % (0.0-12.0); Neutrophils # (auto) 6.4 10 ^3/uL (1.6-8.6); Neutrophils % (auto) 65.1 % (37.0-80.0); Nucleated Red Blood Cells % 0.1 %; Red Blood Cells 3.87 10^6/uL (4.5-5.90); Red Cell Distribution Width 15.5 % (11.8-14.3); White Blood Cell 9.9 10^3/uL (4.4-10.8)
[2024-01-08 09:17] LABS: Calcium 9.4 mg/dL (8.5-10.1); Chloride 104 mmol/L (98-107); Potassium 3.4 mmol/L (3.5-5.1); Sodium 139 mmol/L (136-145)
[2024-01-08 09:18] LABS: Anion Gap 7 (5-15); Carbon Dioxide 28 mmol/L (20-30)
[2024-01-08 09:24] LABS: BUN/Creatinine Ratio 8.4 (10.0-20.0); Blood Urea Nitrogen 10 mg/dL (9-23); Glucose 109 mg/dL (74-106)
== END | disposition home or self-care (01) ==
LOC: LAB 07:39
PROVIDERS: ATTEND Internal Medicine
DX: I50.32 Chronic diastolic (congestive) heart failure (principal); E55.9 Vitamin D deficiency, unspecified; R73.03 Prediabetes
CPT/HCPCS: 36415; 80048; 82306; 83036; 85025

== ENCOUNTER → 2024-01-10 | Outpatient (CLI) | payer OTHER, MEDICAID ==
[2024-01-10 11:44] LABS: Basophils # (auto) 0.1 10 ^3/uL (0-0.2); Eosinophils # (auto) 0 10 ^3/uL (0-0.8); Eosinophils % (auto) 0.4 % (0.0-7.0); Hematocrit 37.5 % (41.0-53.0); Hemoglobin 12.6 g/dL (13.5-17.5); Lymphocytes % (auto) 22.3 % (10.0-50.0); Mean Corpuscular Hemoglobin 33.2 pg (28.0-32.0); Mean Corpuscular Hgb Conc. 33.6 g/dL (32.0-36.0); Mean Corpuscular Volume 98.8 fL (80.0-100.0); Monocytes # (auto) 0.7 10 ^3/uL (0-1.3); Monocytes % (auto) 7.9 % (0.0-12.0); Neutrophils # (auto) 6.1 10 ^3/uL (1.6-8.6); Neutrophils % (auto) 68.4 % (37.0-80.0); Red Blood Cells 3.79 10^6/uL (4.5-5.90); Red Cell Distribution Width 15.4 % (11.8-14.3)
[2024-01-10 12:35] LABS: Alanine Aminotransferase 16 U/L (7-40); Albumin 4.9 g/dL (3.2-4.8); Alkaline Phosphatase 150 U/L (46-116); Anion Gap 5 (5-15); Aspartate Aminotransferase 20 U/L (13-40); BUN/Creatinine Ratio 7.9 (10.0-20.0); Blood Urea Nitrogen 11 mg/dL (9-23); Calcium 9.5 mg/dL (8.5-10.1); Carbon Dioxide 32 mmol/L (20-30); Chloride 104 mmol/L (98-107); Glucose 95 mg/dL (74-106); Potassium 3.4 mmol/L (3.5-5.1); Sodium 141 mmol/L (136-145)
[2024-01-10 12:36] LABS: Bilirubin, Total 0.7 mg/dL (0.2-1.0); Total Protein 7.1 g/dL (5.7-8.2)
== END | disposition home or self-care (01) ==
LOC: LAB 11:14
PROVIDERS: ATTEND Internal Medicine
DX: I50.32 Chronic diastolic (congestive) heart failure (principal); R73.9 Hyperglycemia, unspecified; E87.6 Hypokalemia
CPT/HCPCS: 36415; 80053; 82274; 83036; 85025

== ENCOUNTER → 2024-01-24 | Outpatient (CLI) | payer OTHER, MEDICAID ==
[2024-01-24 09:05] LABS: Basophils # (auto) 0.1 10 ^3/uL (0-0.2); Basophils % (auto) 0.8 % (0.0-2.0); Eosinophils # (auto) 0.1 10 ^3/uL (0-0.8); Eosinophils % (auto) 0.7 % (0.0-7.0); Hematocrit 36.6 % (41.0-53.0); Hemoglobin 12.1 g/dL (13.5-17.5); Lymphocytes # (auto) 2.1 10 ^3/uL (0.4-5.4); Lymphocytes % (auto) 23.2 % (10.0-50.0); Mean Corpuscular Hgb Conc. 33.1 g/dL (32.0-36.0); Mean Corpuscular Volume 99.7 fL (80.0-100.0); Monocytes # (auto) 0.5 10 ^3/uL (0-1.3); Neutrophils # (auto) 6.2 10 ^3/uL (1.6-8.6); Neutrophils % (auto) 69.3 % (37.0-80.0); Red Blood Cells 3.68 10^6/uL (4.5-5.90); Red Cell Distribution Width 15.2 % (11.8-14.3); White Blood Cell 8.9 10^3/uL (4.4-10.8)
[2024-01-24 09:18] LABS: Urine Bacteria NONE SEEN /hpf (None Seen); Urine Blood 1+ /uL (Negative); Urine Clarity Clear (Clear); Urine Color Colorless (Yellow); Urine Protein, UAD Negative (Negative); Urine Specific Gravity 1.007 (1.001-1.035); Urine Urobilinogen Normal (Negative); Urine WBC 1 /hpf (0 - 3)
[2024-01-24 09:33] LABS: Creatinine, Urine 49.95 mg/dL (30.0-125.0); Protein, Urine 6.2 mg/dL (0.0-11.9); Urine Protein/Creatinine Ratio 0.12
[2024-01-24 09:34] LABS: Albumin 4.5 g/dL (3.2-4.8); Bilirubin, Direct 0.1 mg/dL (<0.3); Bilirubin, Total 0.5 mg/dL (0.2-1.0); Phosphorus 1.8 mg/dL (2.4-5.1)
[2024-01-24 10:53] LABS: Magnesium 2.1 mg/dL (1.6-2.6)
== END | disposition home or self-care (01) ==
LOC: LAB 08:43
PROVIDERS: ATTEND Internal Medicine Nephrology
DX: N18.30 Chronic kidney disease, stage 3 unspecified (principal); D63.1 Anemia in chronic kidney disease; E11.21 Type 2 diabetes mellitus with diabetic nephropathy; N39.0 Urinary tract infection, site not specified; R80.9 Proteinuria, unspecified; E21.3 Hyperparathyroidism, unspecified; M10.9 Gout, unspecified; E55.9 Vitamin D deficiency, unspecified
CPT/HCPCS: 36415; 80076; 81001; 82306; 82570; 83735; 83970; 84100; 84156; 84550; 85025

== ENCOUNTER → 2024-03-19 | Outpatient (CLI) | payer OTHER, MEDICAID ==
[2024-03-19 07:36] LABS: Alanine Aminotransferase 12 U/L (7-40); Albumin 4.4 g/dL (3.2-4.8); Alkaline Phosphatase 139 U/L (46-116); Anion Gap 6 (5-15); Aspartate Aminotransferase 18 U/L (13-40); BUN/Creatinine Ratio 10.5 (10.0-20.0); Bilirubin, Total 0.6 mg/dL (0.2-1.0); Blood Urea Nitrogen 16 mg/dL (9-23); Calcium 9.1 mg/dL (8.5-10.1); Carbon Dioxide 33 mmol/L (20-30); Chloride 99 mmol/L (98-107); Glucose 118 mg/dL (74-106); Sodium 138 mmol/L (136-145); Total Protein 6.9 g/dL (5.7-8.2)
[2024-03-19 08:10] LABS: Basophils # (auto) 0.1 10 ^3/uL (0-0.2); Basophils % (auto) 1.1 % (0.0-2.0); Eosinophils # (auto) 0.4 10 ^3/uL (0-0.8); Eosinophils % (auto) 4.7 % (0.0-7.0); Hematocrit 36.3 % (41.0-53.0); Hemoglobin 12.1 g/dL (13.5-17.5); Lymphocytes # (auto) 2.9 10 ^3/uL (0.4-5.4); Lymphocytes % (auto) 30.7 % (10.0-50.0); Mean Corpuscular Hemoglobin 32.8 pg (28.0-32.0); Mean Corpuscular Hgb Conc. 33.4 g/dL (32.0-36.0); Monocytes # (auto) 0.8 10 ^3/uL (0-1.3); Monocytes % (auto) 8.8 % (0.0-12.0); Neutrophils # (auto) 5.2 10 ^3/uL (1.6-8.6); Neutrophils % (auto) 54.7 % (37.0-80.0); Red Cell Distribution Width 15.6 % (11.8-14.3); White Blood Cell 9.6 10^3/uL (4.4-10.8)
== END | disposition home or self-care (01) ==
LOC: LAB 06:18
PROVIDERS: ATTEND Internal Medicine
DX: Z12.11 Encounter for screening for malignant neoplasm of colon (principal); N18.9 Chronic kidney disease, unspecified; R73.03 Prediabetes
CPT/HCPCS: 36415; 80053; 85025

== ENCOUNTER → 2024-03-25 | Outpatient (CLI) | payer OTHER, MEDICAID | END | disposition home or self-care (01) | LOC: LAB 08:12 | PROVIDERS: ATTEND Internal Medicine | DX: Z12.11 Encounter for screening for malignant neoplasm of colon (principal); R73.03 Prediabetes; N18.9 Chronic kidney disease, unspecified | CPT/HCPCS: 82274 ==

== ENCOUNTER → 2024-03-27 | Outpatient (CLI) | payer OTHER, MEDICAID ==
[2024-03-27 15:55] LABS: Chloride 99 mmol/L (98-107); Potassium 3.3 mmol/L (3.5-5.1); Sodium 137 mmol/L (136-145)
[2024-03-27 15:56] LABS: Anion Gap 3 (5-15); Calcium 9.5 mg/dL (8.7-10.4); Carbon Dioxide 35 mmol/L (20-30)
[2024-03-27 16:01] LABS: BUN/Creatinine Ratio 10.3 (10.0-20.0); Blood Urea Nitrogen 14 mg/dL (9-23); Glucose 95 mg/dL (74-106)
== END | disposition home or self-care (01) ==
LOC: LAB 15:26
PROVIDERS: ATTEND Internal Medicine
DX: I10 Essential (primary) hypertension (principal); E55.9 Vitamin D deficiency, unspecified
CPT/HCPCS: 36415; 80048; 82306

== ENCOUNTER → 2024-10-16 | Outpatient (CLI) | payer OTHER, MEDICAID ==
[~2024-10-16] MED LIST changes: +FLUO-470 PO; -FLUO20CA90 PO
[2024-10-16 06:34] LABS: Basophils # (auto) 0.1 10 ^3/uL (0-0.2); Basophils % (auto) 1.1 % (0.0-2.0); Eosinophils # (auto) 0.4 10 ^3/uL (0-0.8); Eosinophils % (auto) 4.8 % (0.0-7.0); Hemoglobin 12.7 g/dL (13.5-17.5); Lymphocytes # (auto) 2.7 10 ^3/uL (0.4-5.4); Lymphocytes % (auto) 33.5 % (10.0-50.0); Mean Corpuscular Hemoglobin 32.7 pg (28.0-32.0); Mean Corpuscular Hgb Conc. 33.5 g/dL (32.0-36.0); Mean Corpuscular Volume 97.7 fL (80.0-100.0); Monocytes # (auto) 0.7 10 ^3/uL (0-1.3); Monocytes % (auto) 8.2 % (0.0-12.0); Neutrophils # (auto) 4.2 10 ^3/uL (1.6-8.6); Neutrophils % (auto) 52.4 % (37.0-80.0); Platelet Count (auto) 270 10^3/uL (140-450); Red Blood Cells 3.89 10^6/uL (4.5-5.90); Red Cell Distribution Width 15.6 % (11.8-14.3)
[2024-10-16 07:02] LABS: Alanine Aminotransferase 17 U/L (7-40); Albumin 4.6 g/dL (3.2-4.8); Alkaline Phosphatase 148 U/L (46-116); Anion Gap 7 (5-15); Aspartate Aminotransferase 18 U/L (13-40); BUN/Creatinine Ratio 7.7 (10.0-20.0); Bilirubin, Total 0.4 mg/dL (0.2-1.0); Blood Urea Nitrogen 11 mg/dL (9-23); Calcium 9.9 mg/dL (8.7-10.4); Carbon Dioxide 33 mmol/L (20-31); Chloride 101 mmol/L (98-107); Cholesterol 166 mg/dL (< 200); Glucose 116 mg/dL (74-106); HDL Cholesterol 39 mg/dL (40-59); LDL Cholesterol 64 mg/dL (< 100); Potassium 3.2 mmol/L (3.5-5.1); Sodium 141 mmol/L (136-145); Triglycerides 343 mg/dL (< 150)
== END | disposition home or self-care (01) ==
LOC: LAB 06:14
PROVIDERS: ATTEND Internal Medicine
DX: E87.6 Hypokalemia (principal); I50.32 Chronic diastolic (congestive) heart failure; R73.03 Prediabetes
CPT/HCPCS: 36415; 80053; 80061; 83036; 85025

== ENCOUNTER 2024-11-08 08:05 | Day surgery (SDC) | payer OTHER, MEDICAID ==
[2024-11-05 09:24] LABS: Urine Bacteria None Seen /hpf (None Seen)
[2024-11-05 10:24] LABS: Basophils # (auto) 0.1 10 ^3/uL (0-0.2); Basophils % (auto) 1.4 % (0.0-2.0); Eosinophils # (auto) 0.3 10 ^3/uL (0-0.8); Eosinophils % (auto) 3.5 % (0.0-7.0); Hemoglobin 12.7 g/dL (13.5-17.5); Lymphocytes # (auto) 2.4 10 ^3/uL (0.4-5.4); Lymphocytes % (auto) 26.9 % (10.0-50.0); Mean Corpuscular Hemoglobin 32.5 pg (28.0-32.0); Mean Corpuscular Hgb Conc. 33.3 g/dL (32.0-36.0); Mean Corpuscular Volume 97.4 fL (80.0-100.0); Monocytes # (auto) 0.8 10 ^3/uL (0-1.3); Monocytes % (auto) 8.7 % (0.0-12.0); Neutrophils # (auto) 5.2 10 ^3/uL (1.6-8.6); Neutrophils % (auto) 59.5 % (37.0-80.0); Platelet Count (auto) 309 10^3/uL (140-450); Red Cell Distribution Width 15.6 % (11.8-14.3); White Blood Cell 8.8 10^3/uL (4.4-10.8)
[2024-11-05 10:36] LABS: INR 1.01 (0.9-1.15); Partial Thromboplastin Time 29.1 SEC (24.5-34.5); Prothrombin Time 10.7 sec (9.3-11.8)
[2024-11-05 10:39] LABS: Urine Blood Negative /uL (Negative); Urine Clarity Clear (Clear); Urine Color Colorless (Yellow); Urine Protein, UAD Negative (Negative); Urine Specific Gravity 1.005 (1.001-1.035); Urine Urobilinogen Normal (Negative); Urine WBC 1 /hpf (0 - 3); Urine pH 7.5 (5.0-9.0)
[2024-11-05 10:46] LABS: Alanine Aminotransferase 15 U/L (7-40); Anion Gap 5 (5-15); Aspartate Aminotransferase 18 U/L (13-40); BUN/Creatinine Ratio 10.2 (10.0-20.0); Blood Urea Nitrogen 14 mg/dL (9-23); Calcium 9.7 mg/dL (8.7-10.4); Sodium 138 mmol/L (136-145)
[2024-11-05 10:47] LABS: Bilirubin, Total 0.4 mg/dL (0.2-1.0); Total Protein 7.4 g/dL (5.7-8.2)
[2024-11-05 10:51] LABS: Carbon Dioxide 36 mmol/L (20-31); Chloride 97 mmol/L (98-107); Potassium 3.1 mmol/L (3.5-5.1)
[2024-11-05 10:52] LABS: Albumin 4.9 g/dL (3.2-4.8); Alkaline Phosphatase 152 U/L (46-116); Glucose 113 mg/dL (74-106)
[~2024-11-08] VITALS: Ht 165.1 cm; Wt 77.1 kg
[2024-11-08] MEDS ORDERED: SIMETHICONE 40 MG/0.6 ML ORAL DROP ONE (08:25)
[2024-11-08] MEDS ORDERED: PROPOFOL 10 MG/ML 20 ML IV ONE ×2 (09:14→10:22)
[2024-11-08] MEDS ORDERED: LIDOCAINE 1% INJ PF 5ML AMP ONE ×2 (09:14→10:32)
[2024-11-08 10:38] VITALS: PULSE 75; RESP 17; TEMP 98.1; O2SAT 92
--- NOTE | 2024-11-08 10:48 | DVHOP2 ---
Operative Report DATE OF OPERATION: 11/08/24 PROCEDURE: Colonoscopy with snare polypectomy. PREOPERATIVE INDICATION: The patient is a 74 -year-old male undergoing colonoscopy for colon cancer screening POSTOPERATIVE DIAGNOSES: 1. There were two 1.5-2 cm benign-appearing transverse colon polyps that were seen and removed by snare polypectomy and the specimens were retrieved 2. There was a 1.5 mm benign-appearing proximal descending colon polyp that was seen and removed by snare polypectomy and the specimens were retrieved 3. Trace to 1+ internal hemorrhoids, mild spasticity of the colon otherwise completely normal colonoscopy examination up to the terminal ileum PROCEDURE PERFORMED BY: Aminah Segovia M.D. SCOPE: Olympus videocolonoscope. ASA CLASS: 3. PREOPERATIVE MEDICATIONS: Jovon Ac PROCEDURE IN DETAIL: After obtaining an informed consent, the patient was placed on left lateral decubitus position. He was then sedated with the above medications. A rectal examination was performed that was normal. The colonoscope was then passed through the anus into the rectosigmoid and through the descending, transverse, and ascending colon up to the cecum with visualization of the appendiceal orifice, base of the cecum and the ileocecal valve. The colonoscope was then withdrawn. The distal 3-5 cm of the terminal ileum were normal. The patient had 21.5-2 cm benign-appearing proximal to mid transverse colon polyps were seen and removed via snare polypectomy These were retrieved. There was another 1.5 cm proximal descending colon polyp. This was removed by snare polypectomy and the specimens were retrieved There was no clear-cut diverticular disease. Patient had [id number] spasticity of the colon On retroflexion he had trace to 1+ internal hemorrhoids.The patient tolerated the procedure well without difficulty. WITHDRAWAL TIME: 11 minutes QUALITY OF THE PREP: [place] Bowel Prep score: 8. COMPLICATIONS : None SPECIMENS: Transverse colon polyps x2 Descending colon polyp DISPOSITION: Stable D/C to home PLAN: 1. Repeat colonoscopy base on biopsy result likely in 3-5 years 2. Resume GI soft diet advance as tolerated 3. Increase fluid and fiber intake 4. Outpatient follow up with me in 4-6 weeks to review results and discuss furth er management 5. Avoid aspirin NSAIDs blood thinners for one week AMINAH SEGOVIA MD Nov 08, 2024 10:48
[2024-11-08 11:10] VITALS: BP 121/61; PULSE 57; RESP 14; O2SAT 98
== END 2024-11-08 11:40 | disposition home or self-care (01) ==
LOC: GI 08:05
PROVIDERS: ATTEND Internal Medicine Gastroenterology
DX: Z12.11 Encounter for screening for malignant neoplasm of colon (principal); D12.4 Benign neoplasm of descending colon; D12.3 Benign neoplasm of transverse colon; K64.8 Other hemorrhoids; K21.9 Gastro-esophageal reflux disease without esophagitis; F32.A Depression, unspecified; E78.5 Hyperlipidemia, unspecified; I50.9 Heart failure, unspecified; G89.29 Other chronic pain; E66.3 Overweight; N18.9 Chronic kidney disease, unspecified; Z88.6 Allergy status to analgesic agent; Z68.28 Body mass index [BMI] 28.0-28.9, adult; Z79.899 Other long term (current) drug therapy
CPT/HCPCS: 36415; 45385; 80053; 81001; 85025; 85610; 85730; 88305; J2704; J7030

== ENCOUNTER → 2025-02-18 | Outpatient (CLI) | payer OTHER, MEDICAID ==
[2025-02-18 06:45] LABS: Chloride 100 mmol/L (98-107); Potassium 3.5 mmol/L (3.5-5.1); Sodium 140 mmol/L (136-145)
[2025-02-18 06:46] LABS: Anion Gap 7 (5-15)
[2025-02-18 06:47] LABS: Calcium 9.4 mg/dL (8.7-10.4)
[2025-02-18 06:48] LABS: Carbon Dioxide 33 mmol/L (20-31)
[2025-02-18 06:51] LABS: Glucose 106 mg/dL (74-106)
[2025-02-18 06:52] LABS: BUN/Creatinine Ratio 9.6 (10.0-20.0); Blood Urea Nitrogen 13 mg/dL (9-23)
== END | disposition home or self-care (01) ==
LOC: LAB 06:16
PROVIDERS: ATTEND Internal Medicine
DX: I13.0 Hypertensive heart and chronic kidney disease with heart failure and stage 1 through stage 4 chronic kidney disease, or unspecified chronic kidney disease (principal); N18.31 Chronic kidney disease, stage 3a; I50.9 Heart failure, unspecified; R73.03 Prediabetes
CPT/HCPCS: 36415; 80048

== ENCOUNTER → 2025-04-18 | Outpatient (CLI) | payer OTHER, MEDICAID ==
[2025-04-18 06:54] LABS: Urine Bacteria None Seen /hpf (None Seen)
[2025-04-18 07:08] LABS: Urine Blood Negative /uL (Negative); Urine Clarity Clear (Clear); Urine Color Light-Yellow (Yellow); Urine Protein, UAD Negative (Negative); Urine Specific Gravity 1.012 (1.001-1.035); Urine Squamous Epithelial Cell None Seen /hpf (<5); Urine Urobilinogen Normal (Negative); Urine WBC 1 /HPF (0-3)
[2025-04-18 07:19] LABS: Alanine Aminotransferase 17 U/L (7-40); Albumin 4.7 g/dL (3.2-4.8); Anion Gap 8 (5-15); Aspartate Aminotransferase 15 U/L (13-40); BUN/Creatinine Ratio 7.6 (10.0-20.0); Blood Urea Nitrogen 10 mg/dL (9-23); Calcium 9.8 mg/dL (8.7-10.4); Carbon Dioxide 30 mmol/L (20-31); Chloride 101 mmol/L (98-107); Cholesterol 167 mg/dL (< 200); LDL Cholesterol 65 mg/dL (< 100); Potassium 4.2 mmol/L (3.5-5.1); Sodium 139 mmol/L (136-145); Total Protein 6.9 g/dL (5.7-8.2)
[2025-04-18 07:20] LABS: Bilirubin, Total 0.8 mg/dL (0.2-1.0)
[2025-04-18 07:21] LABS: Free T3 3.28 pg/mL (2.3-4.2)
[2025-04-18 07:22] LABS: Free T4 (Free Thyroxine) 0.91 ng/dL (0.89-1.76)
[2025-04-18 07:24] LABS: Alkaline Phosphatase 126 U/L (46-116); Glucose 117 mg/dL (74-106); HDL Cholesterol 36 mg/dL (40-59); Triglycerides 364 mg/dL (< 150)
[2025-04-18 07:27] LABS: Basophils # (auto) 0.1 10 ^3/uL (0-0.2); Basophils % (auto) 0.9 % (0.0-2.0); Eosinophils # (auto) 0.2 10 ^3/uL (0-0.8); Eosinophils % (auto) 1.8 % (0.0-7.0); Hemoglobin 12.4 g/dL (13.5-17.5); Lymphocytes # (auto) 2.1 10 ^3/uL (0.4-5.4); Lymphocytes % (auto) 23.4 % (10.0-50.0); Mean Corpuscular Hemoglobin 32.3 pg (28.0-32.0); Mean Corpuscular Hgb Conc. 33.4 g/dL (32.0-36.0); Mean Corpuscular Volume 96.6 fL (80.0-100.0); Monocytes # (auto) 0.6 10 ^3/uL (0-1.3); Monocytes % (auto) 7.3 % (0.0-12.0); Neutrophils # (auto) 5.9 10 ^3/uL (1.6-8.6); Neutrophils % (auto) 66.6 % (37.0-80.0); Platelet Count (auto) 272 10^3/uL (140-450); Red Blood Cells 3.83 10^6/uL (4.5-5.90); Red Cell Distribution Width 15.3 % (11.8-14.3); White Blood Cell 8.8 10^3/uL (4.4-10.8)
== END | disposition home or self-care (01) ==
LOC: LAB 06:42
PROVIDERS: ATTEND Internal Medicine
DX: I13.0 Hypertensive heart and chronic kidney disease with heart failure and stage 1 through stage 4 chronic kidney disease, or unspecified chronic kidney disease (principal); I50.9 Heart failure, unspecified; N18.9 Chronic kidney disease, unspecified; R73.03 Prediabetes; Z79.899 Other long term (current) drug therapy
CPT/HCPCS: 36415; 80053; 80061; 81001; 82306; 82607; 83036; 84439; 84443; 84481; 85025

== ENCOUNTER 2025-09-17 15:09 | Outpatient (CLI) | payer OTHER, MEDICAID ==
[2025-09-17 15:41] LABS: Hematocrit 36.4 % (41.0-53.0); Hemoglobin 12.0 g/dL (13.5-17.5); Mean Corpuscular Hemoglobin 31.6 pg (28.0-32.0); Mean Corpuscular Volume 95.8 fL (80.0-100.0); Nucleated Red Blood Cells % 0.1 %
[2025-09-17 16:18] LABS: Prostate Specific Antigen 2.91 ng/mL (0.0-4.0)
[2025-09-17 16:19] LABS: Alanine Aminotransferase 21 U/L (7-40); Albumin 4.4 g/dL (3.2-4.8); Alkaline Phosphatase 105 U/L (46-116); Anion Gap 6 (5-15); BUN/Creatinine Ratio 9.6 (10.0-20.0); Blood Urea Nitrogen 11 mg/dL (9-23); Calcium 9.4 mg/dL (8.7-10.4); Chloride 101 mmol/L (98-107); Glucose 87 mg/dL (74-106); Potassium 3.9 mmol/L (3.5-5.1); Sodium 140 mmol/L (136-145); Total Protein 6.6 g/dL (5.7-8.2)
[2025-09-17 16:20] LABS: Bilirubin, Total 0.3 mg/dL (0.2-1.0); Carbon Dioxide 33 mmol/L (20-31)
== END 2025-09-17 17:00 | disposition home or self-care (01) ==
LOC: LAB 15:09
PROVIDERS: ATTEND Internal Medicine
DX: E53.8 Deficiency of other specified B group vitamins (principal); E78.5 Hyperlipidemia, unspecified; Z79.899 Other long term (current) drug therapy
CPT/HCPCS: 36415; 80053; 82306; 82607; 83036; 84153; 84443; 85025